=== PATIENT | male | born 2000 | race Caucasian/White ===

== ENCOUNTER 2020-08-15 10:49 | Inpatient (IN) | payer MEDICAID, OTHER ==
[~2020-08-15] VITALS: Ht 182.9 cm; Wt 69.5 kg
[2020-08-15] MEDS ORDERED: LORazepam 2 MG TABLET PO ONE (13:15)
[2020-08-15] MEDS ORDERED: MIRTAZAPINE 15 MG TABLET PO ONE (13:15)
[2020-08-15 13:34] LABS: BASOPHILS % (AUTO) 0.1 % (0.0-2.0); EOSINOPHILS % (AUTO) 1.8 % (1.0-6.0); HEMATOCRIT 37.4 % (41-53); HEMOGLOBIN 12.1 g/dL (13.5-17.5); LYMPHOCYTES # (AUTO) 1.1 K/uL (1.0-4.8); LYMPHOCYTES % (AUTO) 19.4 % (22.0-44.0); MEAN CORPUSCULAR HEMOGLOBIN 26.8 pg (26.0-34.0); MEAN CORPUSCULAR HGB CONC 32.5 G/dL (31.0-37.0); MEAN CORPUSCULAR VOLUME 83 fL (80-100); MONOCYTES # (AUTO) 0.7 K/uL (0.1-1.0); MONOCYTES % (AUTO) 12.9 % (2.0-9.0); NEUTROPHILS # (AUTO) 3.8 K/uL (1.8-7.7); NEUTROPHILS % (AUTO) 65.8 % (40.0-70.0); PLATELET COUNT (AUTO) 250 K/uL (150-450); RED BLOOD CELL COUNT(AUTO) 4.53 MIL/uL (4.50-5.90); RED CELL DISTRIBUTION WIDTH 14.2 % (11.5-14.5)
[2020-08-15 13:44] LABS: ANION GAP 3 mmol/L (8-16); CALCIUM, TOTAL 8.5 mg/dL (8.8-10.5); CARBON DIOXIDE 27 mmol/L (22-29); CHLORIDE 106 mmol/L (98-107); CREATININE 0.73 mg/dL (0.60-1.30); GLOMERULAR FILTR. RATE CALC > 60 mL/min (>60); GLUCOSE,RANDOM 93 mg/dL (70-110); POTASSIUM 4.1 mmol/L (3.5-5.1); SODIUM SERUM 136 mmol/L (136-145); UREA NITROGEN, BLOOD 15 mg/dL (7-18)
[2020-08-15 13:49] LABS: ALANINE AMINOTRANSFERASE 27 U/L (12-78); ALBUMIN 3.7 g/dL (3.4-5.0); ALKALINE PHOSPHATASE 53 U/L (46-116); ASPARTATE AMINOTRANSFERASE 14 U/L (15-37); BILIRUBIN,TOTAL 0.1 mg/dL (0.1-1.0); TOTAL PROTEIN, SERUM 7.2 g/dL (6.4-8.2)
[2020-08-15 14:00] LABS: AMPHET/METH SCREEN,URINE NEGATIVE (NEGATIVE); BARBITURATE SCREEN, URINE NEGATIVE (NEGATIVE); BENZODIAZEPINES SCREEN,URINE NEGATIVE (NEGATIVE); CANNABINOID SCREEN,URINE POSITIVE (NEGATIVE); COCAINE SCREEN,URINE NEGATIVE (NEGATIVE); METHADONE SCREEN, URINE NEGATIVE (NEGATIVE); OPIATE SCREEN,URINE NEGATIVE (NEGATIVE)
[2020-08-15 14:01] LABS: PHENCYCLIDINE SCREEN,URINE NEGATIVE (NEGATIVE)
[2020-08-15 14:04] LABS: LITHIUM < 0.20 mmol/L (0.60-1.20)
[2020-08-15 14:54] LABS: COVID AG,FIA SOURCE NASOPHARYNGEAL
[2020-08-15] MEDS ORDERED: MIRT-89 PO (15:01)
[2020-08-15] MEDS ORDERED: SPIR50 PO (15:01)
[2020-08-15] MEDS ORDERED: ESTR-14 PO (15:01)
[2020-08-15] MEDS ORDERED: QUEtiapine FUMARATE 100 MG TABLET PO PRN (17:30)
[2020-08-15] MEDS ORDERED: HydrOXYzine PAMOATE 50 MG CAPSULE PO PRN (17:30)
[2020-08-15] MEDS ORDERED: ACETAMINOPHEN 325 MG TABLET PO PRN (17:30)
[2020-08-15] MEDS ORDERED: MAG HYDROX/AL HYDROX/SIMETH ES 30 ML SUSPENSION UDCUP PO PRN (17:30)
[2020-08-15] MEDS ORDERED: GuaiFENesin/D-METHORPHAN [SUGAR-FREE] 200-20MG/10 ML SYRUP UDCUP PO PRN (17:30)
[2020-08-15] MEDS ORDERED: MAGNESIUM HYDROXIDE SUSPENSION 30 ML UDCUP PO PRN (17:30)
[2020-08-15] MEDS ORDERED: CYANOCOBALAMIN 1,000 MCG/ML VIAL IM ONE (17:30)
[2020-08-15] MEDS ORDERED: TUBERCULIN, PURIFIED PROTEIN DERIVATIVE 5 TU/0.1 ML SYRINGE ID ONE (17:30)
[2020-08-15] MEDS ORDERED: LOPERAMIDE HCL 2 MG CAPSULE PO PRN (17:30)
[2020-08-15 18:25] VITALS: BP 102/64
[2020-08-15] MEDS ORDERED: MIRTAZAPINE 15 MG TABLET PO SCH (21:00)
[2020-08-15] MEDS ORDERED: OLANZapine 5 MG RAPDIS TABLET PO SCH (21:00)
[2020-08-15] MEDS: LITHIUM CARBONATE 300 MG CAPSULE PO SCH (21:02)
[2020-08-15] MEDS: LORazepam 2 MG TABLET PO PRN (21:03)
[2020-08-15] MEDS: THIAMINE 100 MG TABLET PO SCH (21:03)
[2020-08-15 21:37] VITALS: BP 140/83
[2020-08-16 04:16] VITALS: BP 127/61
[2020-08-16] MEDS: MULTIVITAMINS WITH MINERALS, THERAPEUTIC TABLET PO SCH (09:10)
[2020-08-16] MEDS: FOLIC ACID 1 MG TABLET PO SCH (09:10)
[2020-08-16] MEDS: OMEGA-3/DHA/EPA/FISH OIL 1,000 MG CAPSULE PO SCH (09:10)
[2020-08-16] MEDS: NALTREXONE HCL 50 MG TABLET PO SCH (09:11)
[2020-08-16] MEDS: THIAMINE 100 MG TABLET PO SCH ×2 (09:11→16:36)
[2020-08-16] MEDS: FLUoxetine HCL 20 MG CAPSULE PO SCH (09:11)
[2020-08-16] MEDS: LORazepam 2 MG TABLET PO PRN ×2 (09:12→16:37)
[2020-08-16 09:49] VITALS: BP 107/60
[2020-08-16] MEDS: SPIRONOLACTONE 50 MG TABLET PO SCH (16:37)
[2020-08-16] MEDS: LITHIUM CARBONATE 300 MG CAPSULE PO SCH (20:50)
[2020-08-16] MEDS: OLANZapine 10 MG RAPDIS TABLET PO SCH (20:50)
[2020-08-17 03:29] VITALS: BP 120/61
[2020-08-17 08:39] VITALS: BP 117/77
[2020-08-17] MEDS: THIAMINE 100 MG TABLET PO SCH ×2 (09:26→16:14)
[2020-08-17] MEDS: OMEGA-3/DHA/EPA/FISH OIL 1,000 MG CAPSULE PO SCH (09:26)
[2020-08-17] MEDS: FOLIC ACID 1 MG TABLET PO SCH (09:26)
[2020-08-17] MEDS: MULTIVITAMINS WITH MINERALS, THERAPEUTIC TABLET PO SCH (09:26)
[2020-08-17] MEDS: FLUoxetine HCL 20 MG CAPSULE PO SCH (09:26)
[2020-08-17] MEDS: NALTREXONE HCL 50 MG TABLET PO SCH (09:26)
[2020-08-17] MEDS: SPIRONOLACTONE 50 MG TABLET PO SCH ×2 (09:26→16:14)
[2020-08-17 10:12] LABS: HEMOGLOBIN A1C 5.3 % (3.8-5.6)
[2020-08-17 10:29] LABS: CHOL/HDL RATIO 3.4 (4.2-7.3); FREE T4 (FREE THYROXINE) 0.93 ng/dL (0.76-1.46); THYROID STIMULATING HORMONE 0.07 uIU/mL (0.36-3.74)
[2020-08-17 16:07] VITALS: BP 126/65
[2020-08-17] MEDS: LITHIUM CARBONATE 300 MG CAPSULE PO SCH (20:25)
[2020-08-17] MEDS: OLANZapine 10 MG RAPDIS TABLET PO SCH (20:26)
[2020-08-18 01:48] VITALS: BP 123/62
[2020-08-18 08:05] VITALS: BP 105/60
[2020-08-18] MEDS: OMEGA-3/DHA/EPA/FISH OIL 1,000 MG CAPSULE PO SCH (08:42)
[2020-08-18] MEDS: NALTREXONE HCL 50 MG TABLET PO SCH (08:42)
[2020-08-18] MEDS: FLUoxetine HCL 20 MG CAPSULE PO SCH (08:42)
[2020-08-18] MEDS: FOLIC ACID 1 MG TABLET PO SCH (08:42)
[2020-08-18] MEDS: MULTIVITAMINS WITH MINERALS, THERAPEUTIC TABLET PO SCH (08:42)
[2020-08-18] MEDS: THIAMINE 100 MG TABLET PO SCH ×2 (08:42→17:44)
[2020-08-18] MEDS: SPIRONOLACTONE 50 MG TABLET PO SCH ×2 (08:42→16:22)
[2020-08-18 16:08] VITALS: BP 110/60
[2020-08-18] MEDS: LORazepam 2 MG TABLET PO PRN (16:26)
[2020-08-18] MEDS: OLANZapine 10 MG RAPDIS TABLET PO SCH (19:48)
[2020-08-18] MEDS: LITHIUM CARBONATE 300 MG CAPSULE PO SCH (19:48)
[2020-08-19 04:40] VITALS: BP 118/62
[2020-08-19 08:30] VITALS: BP 100/57
[2020-08-19 09:13] VITALS: BP 109/67
[2020-08-19] MEDS: NALTREXONE HCL 50 MG TABLET PO SCH (09:15)
[2020-08-19] MEDS: SPIRONOLACTONE 50 MG TABLET PO SCH ×2 (09:15→16:36)
[2020-08-19] MEDS: THIAMINE 100 MG TABLET PO SCH ×2 (09:16→16:36)
[2020-08-19] MEDS: FLUoxetine HCL 20 MG CAPSULE PO SCH (09:16)
[2020-08-19] MEDS: OMEGA-3/DHA/EPA/FISH OIL 1,000 MG CAPSULE PO SCH (09:16)
[2020-08-19] MEDS: FOLIC ACID 1 MG TABLET PO SCH (09:16)
[2020-08-19] MEDS: MULTIVITAMINS WITH MINERALS, THERAPEUTIC TABLET PO SCH (09:16)
[2020-08-19 16:06] VITALS: BP 124/65
[2020-08-19] MEDS: LITHIUM CARBONATE 300 MG CAPSULE PO SCH (20:11)
[2020-08-19] MEDS: OLANZapine 10 MG RAPDIS TABLET PO SCH (20:11)
[2020-08-20 08:12] VITALS: BP 103/60
[2020-08-20] MEDS: SPIRONOLACTONE 50 MG TABLET PO SCH ×2 (08:42→16:05)
[2020-08-20] MEDS: OMEGA-3/DHA/EPA/FISH OIL 1,000 MG CAPSULE PO SCH (08:42)
[2020-08-20] MEDS: FOLIC ACID 1 MG TABLET PO SCH (08:42)
[2020-08-20] MEDS: MULTIVITAMINS WITH MINERALS, THERAPEUTIC TABLET PO SCH (08:43)
[2020-08-20] MEDS: NALTREXONE HCL 50 MG TABLET PO SCH (08:43)
[2020-08-20] MEDS: FLUoxetine HCL 20 MG CAPSULE PO SCH (08:43)
[2020-08-20] MEDS: THIAMINE 100 MG TABLET PO SCH ×2 (08:43→16:05)
[2020-08-20 16:10] VITALS: BP 103/62
[2020-08-20] MEDS ORDERED: ESTR2TAB PO (17:48)
[2020-08-20] MEDS: OLANZapine 10 MG RAPDIS TABLET PO SCH (20:13)
[2020-08-20] MEDS: LITHIUM CARBONATE 300 MG CAPSULE PO SCH (20:13)
[2020-08-21 00:26] VITALS: BP 100/64
[2020-08-21 08:01] VITALS: BP 123/66
[2020-08-21] MEDS: MULTIVITAMINS WITH MINERALS, THERAPEUTIC TABLET PO SCH (08:26)
[2020-08-21] MEDS: FOLIC ACID 1 MG TABLET PO SCH (08:26)
[2020-08-21] MEDS: FLUoxetine HCL 20 MG CAPSULE PO SCH (08:26)
[2020-08-21] MEDS: THIAMINE 100 MG TABLET PO SCH ×2 (08:26→16:24)
[2020-08-21] MEDS: ESTRADIOL 2 MG PO SCH ×3 (08:27→16:23)
[2020-08-21] MEDS: OMEGA-3/DHA/EPA/FISH OIL 1,000 MG CAPSULE PO SCH (08:27)
[2020-08-21] MEDS: NALTREXONE HCL 50 MG TABLET PO SCH (08:38)
[2020-08-21] MEDS: SPIRONOLACTONE 50 MG TABLET PO SCH ×2 (09:05→16:24)
[2020-08-21 16:00] VITALS: BP 121/60
[2020-08-21] MEDS: LITHIUM CARBONATE 300 MG CAPSULE PO SCH (20:10)
[2020-08-21] MEDS: OLANZapine 10 MG RAPDIS TABLET PO SCH (20:10)
[2020-08-22 00:19] VITALS: BP 117/67
[2020-08-22 08:09] VITALS: BP 118/77
[2020-08-22] MEDS: OMEGA-3/DHA/EPA/FISH OIL 1,000 MG CAPSULE PO SCH (08:56)
[2020-08-22] MEDS: THIAMINE 100 MG TABLET PO SCH ×2 (08:56→16:09)
[2020-08-22] MEDS: FLUoxetine HCL 20 MG CAPSULE PO SCH (08:56)
[2020-08-22] MEDS: SPIRONOLACTONE 50 MG TABLET PO SCH ×2 (08:56→16:09)
[2020-08-22] MEDS: FOLIC ACID 1 MG TABLET PO SCH (08:56)
[2020-08-22] MEDS: MULTIVITAMINS WITH MINERALS, THERAPEUTIC TABLET PO SCH (08:56)
[2020-08-22] MEDS: NALTREXONE HCL 50 MG TABLET PO SCH (08:56)
[2020-08-22] MEDS: ESTRADIOL 2 MG PO SCH ×3 (08:57→16:09)
[2020-08-22 16:05] VITALS: BP 110/66
[2020-08-22 18:05] LABS: COVID AG,FIA SOURCE NASOPHARYNGEAL
[2020-08-22] MEDS: OLANZapine 10 MG RAPDIS TABLET PO SCH (20:59)
[2020-08-22] MEDS: LITHIUM CARBONATE 300 MG CAPSULE PO SCH (20:59)
[2020-08-23 00:27] VITALS: BP 109/65
[2020-08-23] MEDS ORDERED: LITH300C3 PO (08:02)
[2020-08-23] MEDS ORDERED: OLAN10TA22 PO (08:02)
[2020-08-23] MEDS ORDERED: OMEG-135 PO (08:02)
[2020-08-23] MEDS ORDERED: NALT50TA PO (08:02)
[2020-08-23] MEDS ORDERED: FLUO-191 PO (08:02)
[2020-08-23 08:05] VITALS: BP 141/80
[2020-08-23] MEDS: FLUoxetine HCL 20 MG CAPSULE PO SCH (08:19)
[2020-08-23] MEDS: SPIRONOLACTONE 50 MG TABLET PO SCH (08:19)
[2020-08-23] MEDS: ESTRADIOL 2 MG PO SCH (08:19)
[2020-08-23] MEDS: THIAMINE 100 MG TABLET PO SCH (08:19)
[2020-08-23] MEDS: OMEGA-3/DHA/EPA/FISH OIL 1,000 MG CAPSULE PO SCH (08:19)
[2020-08-23] MEDS: FOLIC ACID 1 MG TABLET PO SCH (08:19)
[2020-08-23] MEDS: MULTIVITAMINS WITH MINERALS, THERAPEUTIC TABLET PO SCH (08:19)
[2020-08-23] MEDS: NALTREXONE HCL 50 MG TABLET PO SCH (08:19)
[2020-08-23] MEDS ORDERED: ESTR-95 PO ×3 (08:21→08:35)
[2020-08-23] MEDS ORDERED: SPIR50 PO (08:25)
== END 2020-08-23 10:45 | disposition home or self-care (01) | DRG 753 ==
LOC: EMS 10:49 → EDSEX 10:49 → B2S 16:59 → B3A 20:48
PROVIDERS: ADMIT Psychiatry & Neurology Psychiatry; ATTEND Psychiatry & Neurology Psychiatry
DX: F31.9 Bipolar disorder, unspecified (principal); R45.851 Suicidal ideations; Z91.5 Personal history of self-harm; Z59.0 Homelessness; F64.9 Gender identity disorder, unspecified; D64.9 Anemia, unspecified; Z79.899 Other long term (current) drug therapy; I95.9 Hypotension, unspecified; Z20.822 Contact with and (suspected) exposure to COVID-19
CPT/HCPCS: 83036; 84439; 84443; 86592; 87426; G0480; J3420

== ENCOUNTER 2021-08-19 13:31 | Inpatient (IN) | payer MEDICAID, OTHER ==
[~2021-08-19] VITALS: Ht 182.9 cm; Wt 76.7 kg
[~2021-08-19 13:31] MED LIST: ESTR2TAB6 PO; FLUO-191 PO; LITH300C3 PO; NALT50TA PO; OLAN10TA22 PO; OMEG-135 PO; SPIR50TA27 PO
[2021-08-19 16:31] LABS: BASOPHILS % (AUTO) 0.3 % (0.0-2.0); EOSINOPHILS % (AUTO) 2.4 % (1.0-6.0); HEMATOCRIT 36.8 % (41-53); HEMOGLOBIN 12.4 g/dL (13.5-17.5); LYMPHOCYTES % (AUTO) 17.1 % (22.0-44.0); MEAN CORPUSCULAR HEMOGLOBIN 26.4 pg (26.0-34.0); MEAN CORPUSCULAR HGB CONC 33.6 G/dL (31.0-37.0); MEAN CORPUSCULAR VOLUME 79 fL (80-100); MONOCYTES # (AUTO) 0.8 K/uL (0.1-1.0); NEUTROPHILS # (AUTO) 3.6 K/uL (1.8-7.7); NEUTROPHILS % (AUTO) 65.2 % (40.0-70.0); PLATELET COUNT (AUTO) 247 K/uL (150-450); RED BLOOD CELL COUNT(AUTO) 4.69 MIL/uL (4.50-5.90); RED CELL DISTRIBUTION WIDTH 13.5 % (11.5-14.5)
[2021-08-19 16:49] LABS: ANION GAP 12 mmol/L (8-16); CALCIUM, TOTAL 8.9 mg/dL (8.8-10.5); CARBON DIOXIDE 26 mmol/L (22-29); CHLORIDE 104 mmol/L (98-107); CREATININE 0.81 mg/dL (0.60-1.30); GLOMERULAR FILTR. RATE CALC > 60 mL/min (>60); GLUCOSE,RANDOM 83 mg/dL (70-110); POTASSIUM 4.3 mmol/L (3.5-5.1); SODIUM SERUM 142 mmol/L (136-145); UREA NITROGEN, BLOOD 11 mg/dL (7-18)
[2021-08-19 16:56] LABS: ALANINE AMINOTRANSFERASE 19 U/L (12-78); ALKALINE PHOSPHATASE 58 U/L (46-116); ASPARTATE AMINOTRANSFERASE 15 U/L (15-37); BILIRUBIN,TOTAL 0.5 mg/dL (0.1-1.0); TOTAL PROTEIN, SERUM 7.3 g/dL (6.4-8.2)
[2021-08-19] MEDS ORDERED: ZOLPIDEM TARTRATE 10 MG TABLET PO PRN (17:45)
[2021-08-19] MEDS ORDERED: OLANZapine 5 MG RAPDIS TABLET PO PRN (17:45)
[2021-08-19] MEDS ORDERED: LORazepam 2 MG TABLET PO PRN (17:45)
[2021-08-19 19:16] LABS: COVID AG,FIA SOURCE NASAL SWAB
[2021-08-19 20:38] VITALS: BP 133/74
[2021-08-19] MEDS ORDERED: ACETAMINOPHEN 325 MG TABLET PO PRN (21:15)
[2021-08-19] MEDS ORDERED: TUBERCULIN, PURIFIED PROTEIN DERIVATIVE 5 TU/0.1 ML SYRINGE ID ONE (21:15)
[2021-08-19] MEDS ORDERED: LOPERAMIDE HCL 2 MG CAPSULE PO PRN (21:15)
[2021-08-19] MEDS ORDERED: MAG HYDROX/AL HYDROX/SIMETH ES 30 ML SUSPENSION UDCUP PO PRN (21:15)
[2021-08-19] MEDS ORDERED: GuaiFENesin/D-METHORPHAN [SUGAR-FREE] 200-20MG/10 ML SYRUP UDCUP PO PRN (21:15)
[2021-08-19] MEDS ORDERED: MAGNESIUM HYDROXIDE SUSPENSION 30 ML UDCUP PO PRN (21:15)
[2021-08-19] MEDS ORDERED: PROMETHAZINE HCL 25 MG TABLET PO PRN (21:15)
[2021-08-19] MEDS ORDERED: HydrOXYzine PAMOATE 50 MG CAPSULE PO PRN (21:15)
[2021-08-20 09:23] LABS: CHOL/HDL RATIO 3.3 (4.2-7.3); FREE T4 (FREE THYROXINE) 1.25 ng/dL (0.76-1.46); THYROID STIMULATING HORMONE 0.12 uIU/mL (0.36-3.74)
[2021-08-20 09:32] LABS: HEMOGLOBIN A1C 5.6 % (3.8-5.6)
[2021-08-20] MEDS: FOLIC ACID 1 MG TABLET PO SCH (09:44)
[2021-08-20] MEDS: MULTIVITAMINS WITH MINERALS, THERAPEUTIC TABLET PO SCH (09:44)
[2021-08-20] MEDS: THIAMINE 100 MG TABLET PO SCH ×2 (09:44→16:14)
[2021-08-20] MEDS: NALTREXONE HCL 50 MG TABLET PO SCH (09:44)
[2021-08-20] MEDS: OMEGA-3/DHA/EPA/FISH OIL 1,000 MG CAPSULE PO SCH (09:44)
[2021-08-20 10:31] VITALS: BP 108/63
[2021-08-20 13:12] LABS: APPEARANCE,URINE CLOUDY (CLEAR); GLUCOSE, URINE (UA) NEGATIVE (NEGATIVE); KETONES,URINE 15 mg/dL (NEGATIVE); LEUKOCYTE ESTERASE ,URINE NEGATIVE (NEGATIVE); NITRATE,URINE NEGATIVE (NEGATIVE); OCCULT BLOOD,URINE NEGATIVE (NEGATIVE); PH,URINE 6.5 (5.0-8.0); PROTEIN,URINE POS 1+ (NEGATIVE)
[2021-08-20 13:17] LABS: AMPHET/METH SCREEN,URINE POSITIVE (NEGATIVE); BARBITURATE SCREEN, URINE NEGATIVE (NEGATIVE); BENZODIAZEPINES SCREEN,URINE NEGATIVE (NEGATIVE); BILIRUBIN,URINE PRELIM. POSITIVE (NEGATIVE); CANNABINOID SCREEN,URINE POSITIVE (NEGATIVE); COCAINE SCREEN,URINE POSITIVE (NEGATIVE); METHADONE SCREEN, URINE NEGATIVE (NEGATIVE); OPIATE SCREEN,URINE NEGATIVE (NEGATIVE)
[2021-08-20 13:18] LABS: PHENCYCLIDINE SCREEN,URINE NEGATIVE (NEGATIVE)
[2021-08-20 16:16] VITALS: BP 129/75
[2021-08-20] MEDS: LITHIUM CARBONATE 300 MG CAPSULE PO SCH (20:08)
[2021-08-20] MEDS: MELATONIN 5 MG TABLET PO SCH (20:09)
[2021-08-20] MEDS: OLANZapine 5 MG RAPDIS TABLET PO SCH (20:09)
[2021-08-20] MEDS: PRAZOSIN HCL 1 MG CAPSULE PO SCH (20:42)
[2021-08-20] MEDS ORDERED: MIRTAZAPINE 15 MG TABLET PO SCH (21:00)
[2021-08-21] MEDS: NALTREXONE HCL 50 MG TABLET PO SCH (09:33)
[2021-08-21] MEDS: MULTIVITAMINS WITH MINERALS, THERAPEUTIC TABLET PO SCH (09:33)
[2021-08-21] MEDS: THIAMINE 100 MG TABLET PO SCH ×2 (09:33→16:07)
[2021-08-21] MEDS: FOLIC ACID 1 MG TABLET PO SCH (09:33)
[2021-08-21] MEDS: OMEGA-3/DHA/EPA/FISH OIL 1,000 MG CAPSULE PO SCH (09:33)
[2021-08-21 09:39] VITALS: BP 96/65
[2021-08-21 13:36] VITALS: BP 96/65
[2021-08-21 16:18] VITALS: BP 101/70
[2021-08-21] MEDS: LITHIUM CARBONATE 300 MG CAPSULE PO SCH (20:05)
[2021-08-21] MEDS: MIRTAZAPINE 30 MG TABLET PO SCH (20:05)
[2021-08-21] MEDS: MELATONIN 5 MG TABLET PO SCH (20:05)
[2021-08-21] MEDS: OLANZapine 5 MG RAPDIS TABLET PO SCH (20:07)
[2021-08-21] MEDS: PRAZOSIN HCL 1 MG CAPSULE PO SCH (20:07)
[2021-08-22 07:06] LABS: HIV 1-2 SCREEN 4TH GEN W/RFLX Non Reactive (Non Reactive)
[2021-08-22 08:00] VITALS: BP 101/59
[2021-08-22] MEDS: FOLIC ACID 1 MG TABLET PO SCH (08:32)
[2021-08-22] MEDS: NALTREXONE HCL 50 MG TABLET PO SCH (08:32)
[2021-08-22] MEDS: MULTIVITAMINS WITH MINERALS, THERAPEUTIC TABLET PO SCH (08:32)
[2021-08-22] MEDS: OMEGA-3/DHA/EPA/FISH OIL 1,000 MG CAPSULE PO SCH (08:32)
[2021-08-22] MEDS: THIAMINE 100 MG TABLET PO SCH ×2 (08:32→17:51)
[2021-08-22 18:00] VITALS: BP 119/73
[2021-08-22] MEDS: LITHIUM CARBONATE 300 MG CAPSULE PO SCH (20:48)
[2021-08-22] MEDS: MIRTAZAPINE 30 MG TABLET PO SCH (20:48)
[2021-08-22] MEDS: PRAZOSIN HCL 1 MG CAPSULE PO SCH (20:48)
[2021-08-22] MEDS: MELATONIN 5 MG TABLET PO SCH (20:48)
[2021-08-22] MEDS: OLANZapine 10 MG RAPDIS TABLET PO SCH (20:49)
[2021-08-23] MEDS: FOLIC ACID 1 MG TABLET PO SCH (08:46)
[2021-08-23] MEDS: NALTREXONE HCL 50 MG TABLET PO SCH (08:46)
[2021-08-23] MEDS: OMEGA-3/DHA/EPA/FISH OIL 1,000 MG CAPSULE PO SCH (08:46)
[2021-08-23] MEDS: MULTIVITAMINS WITH MINERALS, THERAPEUTIC TABLET PO SCH (08:46)
[2021-08-23] MEDS: THIAMINE 100 MG TABLET PO SCH ×2 (08:46→16:37)
[2021-08-23 10:24] VITALS: BP 90/51
[2021-08-23] MEDS: LITHIUM CARBONATE 300 MG CAPSULE PO SCH (17:05)
[2021-08-23 17:10] VITALS: BP 118/67
[2021-08-23] MEDS: OLANZapine 10 MG RAPDIS TABLET PO SCH (20:15)
[2021-08-23] MEDS: MIRTAZAPINE 30 MG TABLET PO SCH (20:15)
[2021-08-23] MEDS: MELATONIN 5 MG TABLET PO SCH (20:15)
[2021-08-23] MEDS: PRAZOSIN HCL 1 MG CAPSULE PO SCH (20:15)
[2021-08-24] MEDS: LITHIUM CARBONATE 300 MG CAPSULE PO SCH ×3 (07:07→16:32)
[2021-08-24] MEDS: THIAMINE 100 MG TABLET PO SCH ×2 (09:07→16:32)
[2021-08-24] MEDS: NALTREXONE HCL 50 MG TABLET PO SCH (09:07)
[2021-08-24] MEDS: MULTIVITAMINS WITH MINERALS, THERAPEUTIC TABLET PO SCH (09:07)
[2021-08-24] MEDS: OMEGA-3/DHA/EPA/FISH OIL 1,000 MG CAPSULE PO SCH (09:07)
[2021-08-24] MEDS: FOLIC ACID 1 MG TABLET PO SCH (09:07)
[2021-08-24 10:39] VITALS: BP 90/51
[2021-08-24 16:31] VITALS: BP 124/78
[2021-08-24] MEDS: MIRTAZAPINE 30 MG TABLET PO SCH (20:57)
[2021-08-24] MEDS: OLANZapine 10 MG RAPDIS TABLET PO SCH (20:57)
[2021-08-24] MEDS: MELATONIN 5 MG TABLET PO SCH (20:57)
[2021-08-24] MEDS: PRAZOSIN HCL 1 MG CAPSULE PO SCH (20:57)
[2021-08-25] MEDS: LITHIUM CARBONATE 300 MG CAPSULE PO SCH ×3 (06:51→16:12)
[2021-08-25] MEDS: OMEGA-3/DHA/EPA/FISH OIL 1,000 MG CAPSULE PO SCH (08:08)
[2021-08-25] MEDS: NALTREXONE HCL 50 MG TABLET PO SCH (08:08)
[2021-08-25] MEDS: THIAMINE 100 MG TABLET PO SCH ×2 (08:08→16:12)
[2021-08-25] MEDS: FOLIC ACID 1 MG TABLET PO SCH (08:08)
[2021-08-25] MEDS: MULTIVITAMINS WITH MINERALS, THERAPEUTIC TABLET PO SCH (08:09)
[2021-08-25 08:30] VITALS: BP 85/67
[2021-08-25 15:12] LABS: COVID AG,FIA SOURCE NASOPHARYNGEAL
[2021-08-25 16:00] VITALS: BP 135/65
[2021-08-25] MEDS: MIRTAZAPINE 30 MG TABLET PO SCH (20:10)
[2021-08-25] MEDS: OLANZapine 10 MG RAPDIS TABLET PO SCH (20:10)
[2021-08-25] MEDS: PRAZOSIN HCL 1 MG CAPSULE PO SCH (20:10)
[2021-08-25] MEDS: MELATONIN 5 MG TABLET PO SCH (20:10)
[2021-08-26] MEDS: LITHIUM CARBONATE 300 MG CAPSULE PO SCH ×3 (06:56→16:34)
[2021-08-26] MEDS: MULTIVITAMINS WITH MINERALS, THERAPEUTIC TABLET PO SCH (08:45)
[2021-08-26] MEDS: NALTREXONE HCL 50 MG TABLET PO SCH (08:46)
[2021-08-26] MEDS: OMEGA-3/DHA/EPA/FISH OIL 1,000 MG CAPSULE PO SCH (08:46)
[2021-08-26] MEDS: FOLIC ACID 1 MG TABLET PO SCH (08:46)
[2021-08-26] MEDS: THIAMINE 100 MG TABLET PO SCH ×2 (08:46→16:34)
[2021-08-26 10:38] VITALS: BP 110/65
[2021-08-26 17:18] VITALS: BP 129/62
[2021-08-26] MEDS: PRAZOSIN HCL 1 MG CAPSULE PO SCH (21:03)
[2021-08-26] MEDS: OLANZapine 10 MG RAPDIS TABLET PO SCH (21:04)
[2021-08-26] MEDS: MIRTAZAPINE 30 MG TABLET PO SCH (21:04)
[2021-08-26] MEDS: MELATONIN 5 MG TABLET PO SCH (21:04)
[2021-08-27] MEDS: LITHIUM CARBONATE 300 MG CAPSULE PO SCH ×3 (06:50→17:34)
[2021-08-27 08:25] VITALS: BP 147/88
[2021-08-27] MEDS: OMEGA-3/DHA/EPA/FISH OIL 1,000 MG CAPSULE PO SCH (09:04)
[2021-08-27] MEDS: THIAMINE 100 MG TABLET PO SCH ×2 (09:04→17:34)
[2021-08-27] MEDS: FOLIC ACID 1 MG TABLET PO SCH (09:04)
[2021-08-27] MEDS: MULTIVITAMINS WITH MINERALS, THERAPEUTIC TABLET PO SCH (09:04)
[2021-08-27] MEDS: NALTREXONE HCL 50 MG TABLET PO SCH (09:05)
[2021-08-27 17:12] VITALS: BP 114/67
[2021-08-27] MEDS ORDERED: LITHIUM CARBONATE 300 MG TABLET PO SCH (21:00)
[2021-08-27] MEDS: MELATONIN 5 MG TABLET PO SCH (21:26)
[2021-08-27] MEDS: OLANZapine 10 MG RAPDIS TABLET PO SCH (21:26)
[2021-08-27] MEDS: PRAZOSIN HCL 1 MG CAPSULE PO SCH (21:26)
[2021-08-27] MEDS: MIRTAZAPINE 30 MG TABLET PO SCH (21:26)
[2021-08-28] MEDS ORDERED: LITHIUM CARBONATE 300 MG CAPSULE PO SCH (07:30)
[2021-08-28 08:30] VITALS: BP 114/62
[2021-08-28] MEDS: THIAMINE 100 MG TABLET PO SCH ×2 (08:35→17:00)
[2021-08-28] MEDS: FOLIC ACID 1 MG TABLET PO SCH (08:35)
[2021-08-28] MEDS: OMEGA-3/DHA/EPA/FISH OIL 1,000 MG CAPSULE PO SCH (08:35)
[2021-08-28] MEDS: NALTREXONE HCL 50 MG TABLET PO SCH (08:36)
[2021-08-28] MEDS: MULTIVITAMINS WITH MINERALS, THERAPEUTIC TABLET PO SCH (08:36)
[2021-08-28 16:15] VITALS: BP 110/68
[2021-08-28] MEDS: ESTRADIOL 1 MG TABLET PO SCH ×2 (17:00→21:08)
[2021-08-28] MEDS: MIRTAZAPINE 30 MG TABLET PO SCH (21:07)
[2021-08-28] MEDS: OLANZapine 10 MG RAPDIS TABLET PO SCH (21:07)
[2021-08-28] MEDS: PRAZOSIN HCL 1 MG CAPSULE PO SCH (21:08)
[2021-08-28] MEDS: MedroxyPROGESTERone ACET 5 MG TABLET PO SCH (21:08)
[2021-08-28] MEDS: MELATONIN 5 MG TABLET PO SCH (21:08)
[2021-08-29] MEDS: ESTRADIOL 1 MG TABLET PO SCH ×2 (08:57→20:29)
[2021-08-29] MEDS: FOLIC ACID 1 MG TABLET PO SCH (08:58)
[2021-08-29] MEDS: NALTREXONE HCL 50 MG TABLET PO SCH (08:58)
[2021-08-29] MEDS: MULTIVITAMINS WITH MINERALS, THERAPEUTIC TABLET PO SCH (08:58)
[2021-08-29] MEDS: OMEGA-3/DHA/EPA/FISH OIL 1,000 MG CAPSULE PO SCH (08:58)
[2021-08-29] MEDS: THIAMINE 100 MG TABLET PO SCH ×2 (08:58→16:09)
[2021-08-29 10:10] VITALS: BP 96/55
[2021-08-29 13:27] VITALS: BP 55/83
[2021-08-29 16:49] VITALS: BP 122/69
[2021-08-29] MEDS: OLANZapine 10 MG RAPDIS TABLET PO SCH (20:28)
[2021-08-29] MEDS: PRAZOSIN HCL 1 MG CAPSULE PO SCH (20:28)
[2021-08-29] MEDS: MELATONIN 5 MG TABLET PO SCH (20:29)
[2021-08-29] MEDS: MedroxyPROGESTERone ACET 5 MG TABLET PO SCH (20:29)
[2021-08-29] MEDS: MIRTAZAPINE 30 MG TABLET PO SCH (20:30)
[2021-08-30] MEDS: OMEGA-3/DHA/EPA/FISH OIL 1,000 MG CAPSULE PO SCH (08:40)
[2021-08-30] MEDS: MULTIVITAMINS WITH MINERALS, THERAPEUTIC TABLET PO SCH (08:40)
[2021-08-30] MEDS: NALTREXONE HCL 50 MG TABLET PO SCH (08:40)
[2021-08-30] MEDS: ESTRADIOL 1 MG TABLET PO SCH ×2 (08:41→20:21)
[2021-08-30 08:57] VITALS: BP 121/69
[2021-08-30 09:03] VITALS: BP 121/69
[2021-08-30 16:18] VITALS: BP 136/69
[2021-08-30] MEDS: MELATONIN 5 MG TABLET PO SCH (20:19)
[2021-08-30] MEDS: MIRTAZAPINE 30 MG TABLET PO SCH (20:19)
[2021-08-30] MEDS: MedroxyPROGESTERone ACET 5 MG TABLET PO SCH (20:20)
[2021-08-30] MEDS: PRAZOSIN HCL 1 MG CAPSULE PO SCH (20:20)
[2021-08-30] MEDS: OLANZapine 10 MG RAPDIS TABLET PO SCH (20:20)
[2021-08-31] MEDS: ESTRADIOL 1 MG TABLET PO SCH ×2 (08:29→20:29)
[2021-08-31] MEDS: OMEGA-3/DHA/EPA/FISH OIL 1,000 MG CAPSULE PO SCH (08:30)
[2021-08-31] MEDS: MULTIVITAMINS WITH MINERALS, THERAPEUTIC TABLET PO SCH (08:30)
[2021-08-31] MEDS: NALTREXONE HCL 50 MG TABLET PO SCH (08:30)
[2021-08-31 08:52] VITALS: BP 116/65
[2021-08-31 16:00] VITALS: BP 122/62
[2021-08-31] MEDS: PRAZOSIN HCL 1 MG CAPSULE PO SCH (20:29)
[2021-08-31] MEDS: MIRTAZAPINE 30 MG TABLET PO SCH (20:29)
[2021-08-31] MEDS: OLANZapine 10 MG RAPDIS TABLET PO SCH (20:29)
[2021-08-31] MEDS: MedroxyPROGESTERone ACET 5 MG TABLET PO SCH (20:29)
[2021-08-31] MEDS: MELATONIN 5 MG TABLET PO SCH (21:04)
[2021-09-01] MEDS: ESTRADIOL 1 MG TABLET PO SCH ×2 (08:18→21:03)
[2021-09-01] MEDS: OMEGA-3/DHA/EPA/FISH OIL 1,000 MG CAPSULE PO SCH (08:18)
[2021-09-01] MEDS: NALTREXONE HCL 50 MG TABLET PO SCH (08:18)
[2021-09-01] MEDS: MULTIVITAMINS WITH MINERALS, THERAPEUTIC TABLET PO SCH (08:18)
[2021-09-01 09:30] VITALS: BP 105/57
[2021-09-01 11:20] LABS: COVID AG,FIA SOURCE NASAL SWAB
[2021-09-01 16:54] VITALS: BP 133/75
[2021-09-01] MEDS: OLANZapine 10 MG RAPDIS TABLET PO SCH (21:02)
[2021-09-01] MEDS: MELATONIN 5 MG TABLET PO SCH (21:02)
[2021-09-01] MEDS: MedroxyPROGESTERone ACET 5 MG TABLET PO SCH (21:02)
[2021-09-01] MEDS: MIRTAZAPINE 30 MG TABLET PO SCH (21:02)
[2021-09-01] MEDS: PRAZOSIN HCL 1 MG CAPSULE PO SCH (21:03)
[2021-09-02] MEDS: OMEGA-3/DHA/EPA/FISH OIL 1,000 MG CAPSULE PO SCH (09:21)
[2021-09-02] MEDS: ESTRADIOL 1 MG TABLET PO SCH ×2 (09:21→20:27)
[2021-09-02] MEDS: MULTIVITAMINS WITH MINERALS, THERAPEUTIC TABLET PO SCH (09:21)
[2021-09-02] MEDS: NALTREXONE HCL 50 MG TABLET PO SCH (09:21)
[2021-09-02 09:47] VITALS: BP 137/51
[2021-09-02 16:13] VITALS: BP 120/77
[2021-09-02] MEDS: MedroxyPROGESTERone ACET 5 MG TABLET PO SCH (20:27)
[2021-09-02] MEDS: OLANZapine 10 MG RAPDIS TABLET PO SCH (20:27)
[2021-09-02] MEDS: MIRTAZAPINE 30 MG TABLET PO SCH (20:28)
[2021-09-02] MEDS: MELATONIN 5 MG TABLET PO SCH (20:28)
[2021-09-02] MEDS: PRAZOSIN HCL 1 MG CAPSULE PO SCH (20:28)
[2021-09-03] MEDS: OMEGA-3/DHA/EPA/FISH OIL 1,000 MG CAPSULE PO SCH (09:13)
[2021-09-03] MEDS: NALTREXONE HCL 50 MG TABLET PO SCH (09:13)
[2021-09-03] MEDS: MULTIVITAMINS WITH MINERALS, THERAPEUTIC TABLET PO SCH (09:13)
[2021-09-03] MEDS: ESTRADIOL 1 MG TABLET PO SCH ×2 (09:13→20:15)
[2021-09-03 09:25] VITALS: BP 108/58
[2021-09-03 16:29] VITALS: BP 104/78
[2021-09-03] MEDS: MIRTAZAPINE 30 MG TABLET PO SCH (20:14)
[2021-09-03] MEDS: MedroxyPROGESTERone ACET 5 MG TABLET PO SCH (20:14)
[2021-09-03] MEDS: OLANZapine 10 MG RAPDIS TABLET PO SCH (20:15)
[2021-09-03] MEDS: PRAZOSIN HCL 1 MG CAPSULE PO SCH (20:15)
[2021-09-03] MEDS: MELATONIN 5 MG TABLET PO SCH (20:15)
[2021-09-04] MEDS: OMEGA-3/DHA/EPA/FISH OIL 1,000 MG CAPSULE PO SCH (09:01)
[2021-09-04] MEDS: MULTIVITAMINS WITH MINERALS, THERAPEUTIC TABLET PO SCH (09:02)
[2021-09-04] MEDS: ESTRADIOL 1 MG TABLET PO SCH (09:02)
[2021-09-04] MEDS: NALTREXONE HCL 50 MG TABLET PO SCH (09:02)
[2021-09-04 13:37] VITALS: BP 103/53
[2021-09-04] MEDS ORDERED: PRAZ1 PO (15:25)
[2021-09-04] MEDS ORDERED: OMEG-135 PO (15:25)
[2021-09-04] MEDS ORDERED: MIRT30 PO (15:25)
[2021-09-04] MEDS ORDERED: MELA5TAB40 PO (15:25)
[2021-09-04] MEDS ORDERED: OLAN10TA26 PO (15:25)
[2021-09-04] MEDS ORDERED: NALT50TA PO (15:25)
[2021-09-04] MEDS ORDERED: ESTR-95 PO ×2 (16:33)
[2021-09-04] MEDS ORDERED: PROV5 PO (16:34)
[2021-09-04 17:03] VITALS: BP 128/68
[2021-09-05] MEDS ORDERED: LITH300C3 PO (12:27)
[2021-09-05] MEDS ORDERED: FLUO20CA36 PO (12:27)
== END 2021-09-04 17:01 | disposition home or self-care (01) | DRG 750 ==
LOC: EMS 13:31 → 3EI 17:33
PROVIDERS: ADMIT Psychiatry & Neurology Psychiatry; ATTEND Psychiatry & Neurology Psychiatry
DX: F25.1 Schizoaffective disorder, depressive type (principal); R45.851 Suicidal ideations; Z59.00 Homelessness unspecified; D64.9 Anemia, unspecified; F19.20 Other psychoactive substance dependence, uncomplicated; F31.9 Bipolar disorder, unspecified; Z20.822 Contact with and (suspected) exposure to COVID-19; F41.9 Anxiety disorder, unspecified; F17.210 Nicotine dependence, cigarettes, uncomplicated; Z91.19 Patient's noncompliance with other medical treatment and regimen; Z55.9 Problems related to education and literacy, unspecified; Z63.9 Problem related to primary support group, unspecified; Z65.3 Problems related to other legal circumstances; Z79.899 Other long term (current) drug therapy; Z91.51 Personal history of suicidal behavior
CPT/HCPCS: 80053; 80061; 80178; 83036; 84439; 84443; 85025; 86592; 87389; 87491; 87591; 99285; G0480; Q9967

== ENCOUNTER 2021-09-06 18:46 | Inpatient (IN) | payer MEDICAID, OTHER ==
[~2021-09-06] VITALS: Ht 175.3 cm; Wt 75.7 kg
[~2021-09-06 18:46] MED LIST changes: +ESTR-95 PO; -ESTR2TAB6 PO; -FLUO-191 PO; +FLUO20CA36 PO; +MELA5TAB40 PO; +MIRT30 PO; -OLAN10TA22 PO; +OLAN10TA26 PO; +PRAZ1 PO; +PROV5 PO; -SPIR50TA27 PO
[2021-09-06] MEDS ORDERED: OLANZapine 5 MG RAPDIS TABLET PO PRN (20:15)
[2021-09-06] MEDS ORDERED: LORazepam 2 MG TABLET PO PRN (20:15)
[2021-09-06] MEDS ORDERED: ZOLPIDEM TARTRATE 10 MG TABLET PO PRN (20:15)
[2021-09-06 21:43] LABS: COVID AG,FIA SOURCE NASOPHARYNGEAL
[2021-09-06 21:44] LABS: BASOPHILS % (AUTO) 0.2 % (0.0-2.0); EOSINOPHILS % (AUTO) 2.9 % (1.0-6.0); HEMATOCRIT 34.5 % (41-53); HEMOGLOBIN 11.3 g/dL (13.5-17.5); LYMPHOCYTES # (AUTO) 1.1 K/uL (1.0-4.8); LYMPHOCYTES % (AUTO) 14.4 % (22.0-44.0); MEAN CORPUSCULAR HGB CONC 32.7 G/dL (31.0-37.0); MEAN CORPUSCULAR VOLUME 80 fL (80-100); MONOCYTES # (AUTO) 0.9 K/uL (0.1-1.0); MONOCYTES % (AUTO) 10.9 % (2.0-9.0); NEUTROPHILS # (AUTO) 5.6 K/uL (1.8-7.7); NEUTROPHILS % (AUTO) 71.6 % (40.0-70.0); PLATELET COUNT (AUTO) 233 K/uL (150-450); RED BLOOD CELL COUNT(AUTO) 4.35 MIL/uL (4.50-5.90)
[2021-09-06 22:15] LABS: ANION GAP 4 mmol/L (8-16); CALCIUM, TOTAL 8.6 mg/dL (8.8-10.5); CARBON DIOXIDE 29 mmol/L (22-29); CHLORIDE 109 mmol/L (98-107); CREATININE 0.72 mg/dL (0.60-1.30); GLOMERULAR FILTR. RATE CALC > 60 mL/min (>60); GLUCOSE,RANDOM 100 mg/dL (70-110); POTASSIUM 3.7 mmol/L (3.5-5.1); SODIUM SERUM 142 mmol/L (136-145); UREA NITROGEN, BLOOD 17 mg/dL (7-18)
[2021-09-06 22:21] LABS: ALANINE AMINOTRANSFERASE 34 U/L (12-78); ALBUMIN 3.8 g/dL (3.4-5.0); ALKALINE PHOSPHATASE 48 U/L (46-116); ASPARTATE AMINOTRANSFERASE 26 U/L (15-37); BILIRUBIN,TOTAL 0.6 mg/dL (0.1-1.0); TOTAL PROTEIN, SERUM 7.1 g/dL (6.4-8.2)
[2021-09-06 23:58] LABS: APPEARANCE,URINE CLEAR (CLEAR); BILIRUBIN,URINE NEGATIVE (NEGATIVE); GLUCOSE, URINE (UA) NEGATIVE (NEGATIVE); KETONES,URINE TRACE mg/dL (NEGATIVE); LEUKOCYTE ESTERASE ,URINE NEGATIVE (NEGATIVE); NITRATE,URINE NEGATIVE (NEGATIVE); OCCULT BLOOD,URINE NEGATIVE (NEGATIVE); PH,URINE 5.5 (5.0-8.0); PROTEIN,URINE NEGATIVE (NEGATIVE); UROBILINOGEN,URINE 0.2 mg/dL (<=1.0)
[2021-09-07 00:07] LABS: AMPHET/METH SCREEN,URINE POSITIVE (NEGATIVE); BARBITURATE SCREEN, URINE NEGATIVE (NEGATIVE); BENZODIAZEPINES SCREEN,URINE NEGATIVE (NEGATIVE); CANNABINOID SCREEN,URINE POSITIVE (NEGATIVE); COCAINE SCREEN,URINE NEGATIVE (NEGATIVE); METHADONE SCREEN, URINE NEGATIVE (NEGATIVE); OPIATE SCREEN,URINE POSITIVE (NEGATIVE)
[2021-09-07 00:10] LABS: PHENCYCLIDINE SCREEN,URINE NEGATIVE (NEGATIVE)
[2021-09-07 00:15] VITALS: BP 118/65
[2021-09-07 08:35] LABS: CHOL/HDL RATIO 2.3 (4.2-7.3)
[2021-09-07 12:53] VITALS: BP 109/64
[2021-09-07] MEDS: TERBINAFINE HCL 1% 30 GM CREAM TP SCH (16:33)
[2021-09-07 16:54] VITALS: BP 118/72
[2021-09-07] MEDS: MedroxyPROGESTERone ACET 5 MG TABLET PO SCH (20:03)
[2021-09-07] MEDS: PRAZOSIN HCL 1 MG CAPSULE PO SCH (20:03)
[2021-09-07] MEDS: MELATONIN 5 MG TABLET PO SCH (20:03)
[2021-09-07] MEDS: ESTRADIOL 1 MG TABLET PO SCH (20:03)
[2021-09-07] MEDS: OLANZapine 10 MG TABLET PO SCH (20:03)
[2021-09-07] MEDS: LITHIUM CARBONATE 300 MG CAPSULE PO SCH (20:04)
[2021-09-08] MEDS: FOLIC ACID 1 MG TABLET PO SCH (08:27)
[2021-09-08] MEDS: NALTREXONE HCL 50 MG TABLET PO SCH (08:27)
[2021-09-08] MEDS: MULTIVITAMINS WITH MINERALS, THERAPEUTIC TABLET PO SCH (08:27)
[2021-09-08] MEDS: THIAMINE 100 MG TABLET PO SCH (08:27)
[2021-09-08] MEDS: OMEGA-3/DHA/EPA/FISH OIL 1,000 MG CAPSULE PO SCH (08:27)
[2021-09-08] MEDS: FLUoxetine HCL 20 MG CAPSULE PO SCH (08:27)
[2021-09-08] MEDS: ESTRADIOL 1 MG TABLET PO SCH ×3 (08:28→20:59)
[2021-09-08 08:30] VITALS: BP 102/67
[2021-09-08] MEDS: TERBINAFINE HCL 1% 30 GM CREAM TP SCH ×2 (10:21→17:55)
[2021-09-08 12:07] VITALS: BP 102/57
[2021-09-08 17:02] VITALS: BP 120/61
[2021-09-08] MEDS: MELATONIN 5 MG TABLET PO SCH ×2 (20:05→21:00)
[2021-09-08] MEDS: MedroxyPROGESTERone ACET 5 MG TABLET PO SCH ×2 (20:06→21:00)
[2021-09-08] MEDS: LITHIUM CARBONATE 300 MG CAPSULE PO SCH ×2 (20:06→20:57)
[2021-09-08] MEDS: PRAZOSIN HCL 1 MG CAPSULE PO SCH ×2 (20:07→21:00)
[2021-09-08] MEDS: OLANZapine 10 MG TABLET PO SCH ×2 (20:08→21:00)
[2021-09-09 08:02] VITALS: BP 124/73
[2021-09-09] MEDS: MULTIVITAMINS WITH MINERALS, THERAPEUTIC TABLET PO SCH (08:27)
[2021-09-09] MEDS: OMEGA-3/DHA/EPA/FISH OIL 1,000 MG CAPSULE PO SCH (08:27)
[2021-09-09] MEDS: NALTREXONE HCL 50 MG TABLET PO SCH (08:28)
[2021-09-09] MEDS: TERBINAFINE HCL 1% 30 GM CREAM TP SCH ×2 (08:28→16:47)
[2021-09-09] MEDS: FOLIC ACID 1 MG TABLET PO SCH (08:28)
[2021-09-09] MEDS: FLUoxetine HCL 20 MG CAPSULE PO SCH (08:28)
[2021-09-09] MEDS: THIAMINE 100 MG TABLET PO SCH (08:28)
[2021-09-09] MEDS: ESTRADIOL 1 MG TABLET PO SCH ×2 (08:28→20:26)
[2021-09-09 16:18] VITALS: BP 135/85
[2021-09-09] MEDS: PRAZOSIN HCL 1 MG CAPSULE PO SCH (20:26)
[2021-09-09] MEDS: OLANZapine 10 MG TABLET PO SCH (20:26)
[2021-09-09] MEDS: MELATONIN 5 MG TABLET PO SCH (20:26)
[2021-09-09] MEDS: MedroxyPROGESTERone ACET 5 MG TABLET PO SCH (20:26)
[2021-09-09] MEDS ORDERED: MIRTAZAPINE 15 MG TABLET PO SCH (21:00)
[2021-09-10] MEDS: FOLIC ACID 1 MG TABLET PO SCH (08:24)
[2021-09-10] MEDS: NALTREXONE HCL 50 MG TABLET PO SCH (08:24)
[2021-09-10] MEDS: FLUoxetine HCL 20 MG CAPSULE PO SCH (08:24)
[2021-09-10] MEDS: OMEGA-3/DHA/EPA/FISH OIL 1,000 MG CAPSULE PO SCH (08:24)
[2021-09-10] MEDS: MULTIVITAMINS WITH MINERALS, THERAPEUTIC TABLET PO SCH (08:24)
[2021-09-10] MEDS: THIAMINE 100 MG TABLET PO SCH (08:24)
[2021-09-10] MEDS: TERBINAFINE HCL 1% 30 GM CREAM TP SCH ×2 (08:25→17:06)
[2021-09-10] MEDS: ESTRADIOL 1 MG TABLET PO SCH ×2 (08:25→20:44)
[2021-09-10 09:17] VITALS: BP 95/52
[2021-09-10 16:14] VITALS: BP 106/59
[2021-09-10] MEDS: OLANZapine 10 MG TABLET PO SCH (20:44)
[2021-09-10] MEDS: MedroxyPROGESTERone ACET 5 MG TABLET PO SCH (20:45)
[2021-09-10] MEDS: MELATONIN 5 MG TABLET PO SCH (20:45)
[2021-09-10] MEDS: PRAZOSIN HCL 1 MG CAPSULE PO SCH (20:45)
[2021-09-10] MEDS ORDERED: MIRTAZAPINE 30 MG TABLET PO SCH (21:00)
[2021-09-11] MEDS: FLUoxetine HCL 20 MG CAPSULE PO SCH (08:32)
[2021-09-11] MEDS: MULTIVITAMINS WITH MINERALS, THERAPEUTIC TABLET PO SCH (08:33)
[2021-09-11] MEDS: FOLIC ACID 1 MG TABLET PO SCH (08:34)
[2021-09-11] MEDS: OMEGA-3/DHA/EPA/FISH OIL 1,000 MG CAPSULE PO SCH (08:34)
[2021-09-11] MEDS: THIAMINE 100 MG TABLET PO SCH (08:34)
[2021-09-11] MEDS: NALTREXONE HCL 50 MG TABLET PO SCH (08:34)
[2021-09-11] MEDS: TERBINAFINE HCL 1% 30 GM CREAM TP SCH ×2 (08:35→16:42)
[2021-09-11 08:50] VITALS: BP 108/59
[2021-09-11] MEDS: ESTRADIOL 1 MG TABLET PO SCH ×2 (09:00→20:05)
[2021-09-11 17:07] VITALS: BP 13/78
[2021-09-11] MEDS: MIRTAZAPINE 30 MG TABLET PO SCH (20:04)
[2021-09-11] MEDS: MELATONIN 5 MG TABLET PO SCH (20:04)
[2021-09-11] MEDS: OLANZapine 10 MG TABLET PO SCH (20:04)
[2021-09-11] MEDS: MedroxyPROGESTERone ACET 5 MG TABLET PO SCH (20:05)
[2021-09-11] MEDS: PRAZOSIN HCL 1 MG CAPSULE PO SCH (20:05)
[2021-09-11 23:47] LABS: COVID AG,FIA SOURCE NASAL SWAB
[2021-09-12] MEDS: OMEGA-3/DHA/EPA/FISH OIL 1,000 MG CAPSULE PO SCH (08:59)
[2021-09-12] MEDS: MULTIVITAMINS WITH MINERALS, THERAPEUTIC TABLET PO SCH (08:59)
[2021-09-12] MEDS: THIAMINE 100 MG TABLET PO SCH (08:59)
[2021-09-12] MEDS: FLUoxetine HCL 20 MG CAPSULE PO SCH (08:59)
[2021-09-12] MEDS: FOLIC ACID 1 MG TABLET PO SCH (09:00)
[2021-09-12] MEDS: TERBINAFINE HCL 1% 30 GM CREAM TP SCH ×2 (09:00→16:45)
[2021-09-12] MEDS: NALTREXONE HCL 50 MG TABLET PO SCH (09:00)
[2021-09-12] MEDS: ESTRADIOL 1 MG TABLET PO SCH ×2 (09:01→20:44)
[2021-09-12 15:03] VITALS: BP 119/70
[2021-09-12 17:26] VITALS: BP 126/72
[2021-09-12] MEDS: MedroxyPROGESTERone ACET 5 MG TABLET PO SCH (20:44)
[2021-09-12] MEDS: MIRTAZAPINE 30 MG TABLET PO SCH (20:46)
[2021-09-12] MEDS: OLANZapine 10 MG TABLET PO SCH (20:46)
[2021-09-12] MEDS: PRAZOSIN HCL 1 MG CAPSULE PO SCH (20:46)
[2021-09-12] MEDS: MELATONIN 5 MG TABLET PO SCH (20:47)
[2021-09-13] MEDS: MULTIVITAMINS WITH MINERALS, THERAPEUTIC TABLET PO SCH (08:35)
[2021-09-13] MEDS: ESTRADIOL 1 MG TABLET PO SCH ×2 (08:35→20:26)
[2021-09-13] MEDS: FLUoxetine HCL 20 MG CAPSULE PO SCH (08:41)
[2021-09-13] MEDS: NALTREXONE HCL 50 MG TABLET PO SCH (08:41)
[2021-09-13] MEDS: FOLIC ACID 1 MG TABLET PO SCH (08:41)
[2021-09-13] MEDS: OMEGA-3/DHA/EPA/FISH OIL 1,000 MG CAPSULE PO SCH (08:41)
[2021-09-13] MEDS: THIAMINE 100 MG TABLET PO SCH (08:41)
[2021-09-13] MEDS: TERBINAFINE HCL 1% 30 GM CREAM TP SCH ×2 (08:43→16:53)
[2021-09-13 09:13] VITALS: BP 93/52
[2021-09-13 16:15] VITALS: BP 121/62
[2021-09-13] MEDS: MedroxyPROGESTERone ACET 5 MG TABLET PO SCH (20:25)
[2021-09-13] MEDS: OLANZapine 10 MG TABLET PO SCH (20:26)
[2021-09-13] MEDS: MELATONIN 5 MG TABLET PO SCH (20:26)
[2021-09-13] MEDS: PRAZOSIN HCL 1 MG CAPSULE PO SCH (20:26)
[2021-09-13] MEDS: MIRTAZAPINE 30 MG TABLET PO SCH (20:27)
[2021-09-14] MEDS: ESTRADIOL 1 MG TABLET PO SCH ×2 (08:51→20:20)
[2021-09-14] MEDS: FLUoxetine HCL 20 MG CAPSULE PO SCH (08:51)
[2021-09-14] MEDS: NALTREXONE HCL 50 MG TABLET PO SCH (08:52)
[2021-09-14] MEDS: TERBINAFINE HCL 1% 30 GM CREAM TP SCH ×2 (08:52→16:49)
[2021-09-14] MEDS: MULTIVITAMINS WITH MINERALS, THERAPEUTIC TABLET PO SCH (08:52)
[2021-09-14] MEDS: OMEGA-3/DHA/EPA/FISH OIL 1,000 MG CAPSULE PO SCH (08:52)
[2021-09-14] MEDS: FOLIC ACID 1 MG TABLET PO SCH (08:52)
[2021-09-14] MEDS: THIAMINE 100 MG TABLET PO SCH (08:52)
[2021-09-14 09:16] VITALS: BP 108/62
[2021-09-14 16:22] VITALS: BP 116/68
[2021-09-14] MEDS: MELATONIN 5 MG TABLET PO SCH (20:20)
[2021-09-14] MEDS: MedroxyPROGESTERone ACET 5 MG TABLET PO SCH (20:20)
[2021-09-14] MEDS: MIRTAZAPINE 30 MG TABLET PO SCH (20:21)
[2021-09-14] MEDS: OLANZapine 10 MG TABLET PO SCH (20:21)
[2021-09-14] MEDS: PRAZOSIN HCL 1 MG CAPSULE PO SCH (20:21)
[2021-09-15] MEDS: OMEGA-3/DHA/EPA/FISH OIL 1,000 MG CAPSULE PO SCH (08:18)
[2021-09-15] MEDS: FLUoxetine HCL 20 MG CAPSULE PO SCH (08:18)
[2021-09-15] MEDS: FOLIC ACID 1 MG TABLET PO SCH (08:18)
[2021-09-15] MEDS: NALTREXONE HCL 50 MG TABLET PO SCH (08:18)
[2021-09-15] MEDS: MULTIVITAMINS WITH MINERALS, THERAPEUTIC TABLET PO SCH (08:18)
[2021-09-15] MEDS: THIAMINE 100 MG TABLET PO SCH (08:18)
[2021-09-15] MEDS: ESTRADIOL 1 MG TABLET PO SCH ×2 (08:19→20:20)
[2021-09-15] MEDS: TERBINAFINE HCL 1% 30 GM CREAM TP SCH ×2 (08:19→17:01)
[2021-09-15 08:35] VITALS: BP 91/55
[2021-09-15 16:00] VITALS: BP 113/65
[2021-09-15 16:33] VITALS: BP 113/65
[2021-09-15] MEDS: OLANZapine 10 MG TABLET PO SCH (20:20)
[2021-09-15] MEDS: MedroxyPROGESTERone ACET 5 MG TABLET PO SCH (20:20)
[2021-09-15] MEDS: MELATONIN 5 MG TABLET PO SCH (20:20)
[2021-09-15] MEDS: MIRTAZAPINE 30 MG TABLET PO SCH (20:20)
[2021-09-15] MEDS: PRAZOSIN HCL 1 MG CAPSULE PO SCH (20:20)
[2021-09-16] MEDS: NALTREXONE HCL 50 MG TABLET PO SCH (08:55)
[2021-09-16] MEDS: OMEGA-3/DHA/EPA/FISH OIL 1,000 MG CAPSULE PO SCH (08:55)
[2021-09-16] MEDS: MULTIVITAMINS WITH MINERALS, THERAPEUTIC TABLET PO SCH (08:55)
[2021-09-16] MEDS: FLUoxetine HCL 20 MG CAPSULE PO SCH (08:55)
[2021-09-16] MEDS: FOLIC ACID 1 MG TABLET PO SCH (08:55)
[2021-09-16] MEDS: TERBINAFINE HCL 1% 30 GM CREAM TP SCH ×2 (08:56→16:21)
[2021-09-16] MEDS: THIAMINE 100 MG TABLET PO SCH (08:56)
[2021-09-16 09:16] VITALS: BP 158/79
[2021-09-16] MEDS: ESTRADIOL 1 MG TABLET PO SCH ×2 (10:00→20:01)
[2021-09-16 16:00] VITALS: BP 119/76
[2021-09-16] MEDS: MedroxyPROGESTERone ACET 5 MG TABLET PO SCH (20:00)
[2021-09-16] MEDS: MIRTAZAPINE 30 MG TABLET PO SCH (20:02)
[2021-09-16] MEDS: MELATONIN 5 MG TABLET PO SCH (20:02)
[2021-09-16] MEDS: OLANZapine 10 MG TABLET PO SCH (20:02)
[2021-09-16] MEDS: PRAZOSIN HCL 1 MG CAPSULE PO SCH (20:04)
[2021-09-16] MEDS ORDERED: NALT50TA PO (20:21)
[2021-09-16] MEDS ORDERED: PRAZ1 PO (20:21)
[2021-09-16] MEDS ORDERED: OMEG-135 PO (20:21)
[2021-09-16] MEDS ORDERED: OLAN10 PO (20:21)
[2021-09-16] MEDS ORDERED: MELA5TAB40 PO (20:21)
[2021-09-16] MEDS ORDERED: MIRT30 PO (20:21)
[2021-09-16] MEDS ORDERED: PROZ20 PO (20:21)
[2021-09-17 08:00] VITALS: BP 143/75
[2021-09-17] MEDS: THIAMINE 100 MG TABLET PO SCH (08:14)
[2021-09-17] MEDS: FOLIC ACID 1 MG TABLET PO SCH (08:14)
[2021-09-17] MEDS: MULTIVITAMINS WITH MINERALS, THERAPEUTIC TABLET PO SCH (08:14)
[2021-09-17] MEDS: NALTREXONE HCL 50 MG TABLET PO SCH (08:14)
[2021-09-17] MEDS: OMEGA-3/DHA/EPA/FISH OIL 1,000 MG CAPSULE PO SCH (08:14)
[2021-09-17] MEDS: FLUoxetine HCL 20 MG CAPSULE PO SCH (08:14)
[2021-09-17] MEDS: ESTRADIOL 1 MG TABLET PO SCH (08:15)
[2021-09-17] MEDS: TERBINAFINE HCL 1% 30 GM CREAM TP SCH (09:00)
== END 2021-09-17 14:35 | disposition home or self-care (01) | DRG 750 ==
LOC: EMS 18:48 → 3EI 23:06
PROVIDERS: ADMIT Psychiatry & Neurology Psychiatry; ATTEND Psychiatry & Neurology Psychiatry
DX: F25.1 Schizoaffective disorder, depressive type (principal); R45.851 Suicidal ideations; F22 Delusional disorders; F31.81 Bipolar II disorder; F11.90 Opioid use, unspecified, uncomplicated; F15.90 Other stimulant use, unspecified, uncomplicated; F43.10 Post-traumatic stress disorder, unspecified; I10 Essential (primary) hypertension; F90.9 Attention-deficit hyperactivity disorder, unspecified type; F17.210 Nicotine dependence, cigarettes, uncomplicated; Z20.822 Contact with and (suspected) exposure to COVID-19; F12.20 Cannabis dependence, uncomplicated; F06.30 Mood disorder due to known physiological condition, unspecified; Z59.00 Homelessness unspecified; Z91.19 Patient's noncompliance with other medical treatment and regimen; Z91.14 Patient's other noncompliance with medication regimen; Z72.89 Other problems related to lifestyle
CPT/HCPCS: 80053; 80061; 81003; 85025; 87081; 99285; G0480; Q9967

== ENCOUNTER 2021-10-02 18:55 | Inpatient (IN) | payer MEDICAID, OTHER ==
[~2021-10-02] VITALS: Ht 157.5 cm; Wt 76.3 kg
[~2021-10-02 18:55] MED LIST changes: +OLAN10 PO; +OMEG-108 PO; -OMEG-135 PO; +PROZ20 PO
[2021-10-02 19:55] LABS: BASOPHILS % (AUTO) 0.2 % (0.0-2.0); EOSINOPHILS % (AUTO) 1.3 % (1.0-6.0); HEMATOCRIT 38.1 % (41-53); HEMOGLOBIN 12.7 g/dL (13.5-17.5); LYMPHOCYTES # (AUTO) 1.4 K/uL (1.0-4.8); LYMPHOCYTES % (AUTO) 15.8 % (22.0-44.0); MEAN CORPUSCULAR HEMOGLOBIN 25.8 pg (26.0-34.0); MEAN CORPUSCULAR HGB CONC 33.3 G/dL (31.0-37.0); MEAN CORPUSCULAR VOLUME 77 fL (80-100); MONOCYTES # (AUTO) 1.3 K/uL (0.1-1.0); MONOCYTES % (AUTO) 15.4 % (2.0-9.0); NEUTROPHILS # (AUTO) 5.9 K/uL (1.8-7.7); NEUTROPHILS % (AUTO) 67.3 % (40.0-70.0); PLATELET COUNT (AUTO) 299 K/uL (150-450); RED BLOOD CELL COUNT(AUTO) 4.92 MIL/uL (4.50-5.90); RED CELL DISTRIBUTION WIDTH 13.9 % (11.5-14.5)
[2021-10-02 20:01] LABS: COVID AG,FIA SOURCE NASOPHARYNGEAL
[2021-10-02 20:06] LABS: CALCIUM, TOTAL 9.2 mg/dL (8.8-10.5); CARBON DIOXIDE 31 mmol/L (22-29); CHLORIDE 103 mmol/L (98-107); CREATININE 0.73 mg/dL (0.60-1.30); GLOMERULAR FILTR. RATE CALC > 60 mL/min (>60); GLUCOSE,RANDOM 86 mg/dL (70-110); POTASSIUM 3.2 mmol/L (3.5-5.1); UREA NITROGEN, BLOOD 7 mg/dL (7-18)
[2021-10-02 20:12] LABS: ALANINE AMINOTRANSFERASE 23 U/L (12-78); ALBUMIN 3.8 g/dL (3.4-5.0); ALKALINE PHOSPHATASE 83 U/L (46-116); ANION GAP 8 mmol/L (8-16); ASPARTATE AMINOTRANSFERASE 14 U/L (15-37); BILIRUBIN,TOTAL 0.5 mg/dL (0.1-1.0); SODIUM SERUM 142 mmol/L (136-145); TOTAL PROTEIN, SERUM 7.8 g/dL (6.4-8.2)
[2021-10-02] MEDS ORDERED: LOPERAMIDE HCL 2 MG CAPSULE PO PRN (21:15)
[2021-10-02] MEDS ORDERED: IBUPROFEN 600 MG TABLET PO PRN (21:15)
[2021-10-02] MEDS ORDERED: CloNIDine HCL 0.1 MG TABLET PO PRN (21:15)
[2021-10-02] MEDS ORDERED: ZOLPIDEM TARTRATE 10 MG TABLET PO PRN (21:15)
[2021-10-02] MEDS ORDERED: GuaiFENesin/D-METHORPHAN [SUGAR-FREE] 200-20MG/10 ML SYRUP UDCUP PO PRN (21:15)
[2021-10-02] MEDS ORDERED: PROMETHAZINE HCL 25 MG TABLET PO PRN (21:15)
[2021-10-02] MEDS ORDERED: MAGNESIUM HYDROXIDE SUSPENSION 30 ML UDCUP PO PRN (21:15)
[2021-10-02] MEDS ORDERED: OLANZapine 5 MG RAPDIS TABLET PO PRN (21:15)
[2021-10-02] MEDS ORDERED: ACETAMINOPHEN 325 MG TABLET PO PRN (21:15)
[2021-10-02] MEDS ORDERED: HydrOXYzine PAMOATE 50 MG CAPSULE PO PRN ×2 (21:15)
[2021-10-02] MEDS ORDERED: MAG HYDROX/AL HYDROX/SIMETH ES 30 ML SUSPENSION UDCUP PO PRN ×2 (21:15)
[2021-10-02 21:21] LABS: LITHIUM < 0.20 mmol/L (0.60-1.20)
[2021-10-02] MEDS: CloNIDine HCL 0.1 MG TABLET PO SCH (21:53)
[2021-10-03] VITALS (11 sets, daily range): BP systolic 93–129; BP diastolic 58–89
[2021-10-03] MEDS ORDERED: LORazepam 2 MG TABLET PO PRN (01:15)
[2021-10-03] MEDS ORDERED: HALOPERIDOL 5 MG TABLET PO PRN (01:15)
[2021-10-03] MEDS ORDERED: ZOLPIDEM TARTRATE 10 MG TABLET PO PRN (01:15)
[2021-10-03] MEDS ORDERED: INFLUENZA VIRUS VACCINE QVS 2021-22 (6MO+)/PF 60 MCG/0.5 ML SYRINGE IM. ONE (01:45)
[2021-10-03] MEDS: CloNIDine HCL 0.1 MG TABLET PO SCH ×4 (05:37→21:43)
[2021-10-03 08:51] LABS: CHOL/HDL RATIO 2.6 (4.2-7.3); HEMOGLOBIN A1C 5.5 % (3.8-5.6)
[2021-10-03] MEDS ORDERED: PALIPERIDONE PALMITATE 234 MG/1.5 ML SYRINGE IM ONE (09:00)
[2021-10-03] MEDS: MULTIVITAMINS WITH MINERALS, THERAPEUTIC TABLET PO SCH (09:29)
[2021-10-03] MEDS: FLUoxetine HCL 10 MG CAPSULE PO SCH (09:29)
[2021-10-03] MEDS: THIAMINE 100 MG TABLET PO SCH ×2 (09:29→17:15)
[2021-10-03] MEDS: FOLIC ACID 1 MG TABLET PO SCH (09:29)
[2021-10-03] MEDS: POTASSIUM CHLORIDE 20 MEQ ER TABLET PO SCH ×2 (12:00→20:59)
[2021-10-03] MEDS: MIRTAZAPINE 15 MG TABLET PO SCH (20:58)
[2021-10-03] MEDS: OLANZapine 10 MG RAPDIS TABLET PO SCH (20:58)
[2021-10-03] MEDS: PRAZOSIN HCL 1 MG CAPSULE PO SCH (20:58)
[2021-10-04] MEDS: CloNIDine HCL 0.1 MG TABLET PO SCH ×4 (06:00→21:27)
[2021-10-04 09:24] VITALS: BP_SYST 89; BP_DIAS 51; BP_DIAS 89
[2021-10-04] MEDS: FLUoxetine HCL 10 MG CAPSULE PO SCH (10:15)
[2021-10-04] MEDS: THIAMINE 100 MG TABLET PO SCH ×2 (10:18→17:42)
[2021-10-04] MEDS: FOLIC ACID 1 MG TABLET PO SCH (10:18)
[2021-10-04] MEDS: MULTIVITAMINS WITH MINERALS, THERAPEUTIC TABLET PO SCH (10:18)
[2021-10-04 16:00] VITALS: BP 110/67
[2021-10-04] MEDS: OLANZapine 10 MG RAPDIS TABLET PO SCH (20:44)
[2021-10-04] MEDS: PRAZOSIN HCL 1 MG CAPSULE PO SCH (20:44)
[2021-10-04] MEDS: MIRTAZAPINE 15 MG TABLET PO SCH (20:45)
[2021-10-05 06:00] VITALS: BP 92/53
[2021-10-05] MEDS: CloNIDine HCL 0.1 MG TABLET PO SCH ×4 (06:00→20:15)
[2021-10-05 08:10] VITALS: BP 98/66
[2021-10-05] MEDS: THIAMINE 100 MG TABLET PO SCH ×2 (08:41→16:13)
[2021-10-05] MEDS: FOLIC ACID 1 MG TABLET PO SCH (08:41)
[2021-10-05] MEDS: FLUoxetine HCL 10 MG CAPSULE PO SCH (08:41)
[2021-10-05] MEDS: MULTIVITAMINS WITH MINERALS, THERAPEUTIC TABLET PO SCH (08:41)
[2021-10-05 16:37] VITALS: BP 99/57
[2021-10-05 16:52] VITALS: BP 99/57
[2021-10-05] MEDS: OLANZapine 10 MG RAPDIS TABLET PO SCH (20:15)
[2021-10-05] MEDS: MIRTAZAPINE 15 MG TABLET PO SCH (20:15)
[2021-10-05] MEDS: PRAZOSIN HCL 1 MG CAPSULE PO SCH (20:15)
[2021-10-06] MEDS: CloNIDine HCL 0.1 MG TABLET PO SCH ×4 (06:00→20:05)
[2021-10-06] MEDS: FLUoxetine HCL 10 MG CAPSULE PO SCH (09:26)
[2021-10-06] MEDS: THIAMINE 100 MG TABLET PO SCH ×2 (09:26→16:08)
[2021-10-06] MEDS: FOLIC ACID 1 MG TABLET PO SCH (09:26)
[2021-10-06] MEDS: MULTIVITAMINS WITH MINERALS, THERAPEUTIC TABLET PO SCH (09:26)
[2021-10-06 10:18] VITALS: BP 94/51
[2021-10-06 10:26] VITALS: BP 94/51
[2021-10-06 16:17] VITALS: BP 96/50
[2021-10-06 16:30] VITALS: BP 96/50
[2021-10-06] MEDS: MIRTAZAPINE 15 MG TABLET PO SCH (20:03)
[2021-10-06] MEDS: OLANZapine 10 MG RAPDIS TABLET PO SCH (20:03)
[2021-10-06] MEDS: PRAZOSIN HCL 1 MG CAPSULE PO SCH (20:03)
[2021-10-07] MEDS: CloNIDine HCL 0.1 MG TABLET PO SCH ×4 (06:00→20:04)
[2021-10-07 06:04] VITALS: BP 97/57
[2021-10-07 06:05] VITALS: BP 97/57
[2021-10-07] MEDS: FLUoxetine HCL 10 MG CAPSULE PO SCH (08:37)
[2021-10-07] MEDS: MULTIVITAMINS WITH MINERALS, THERAPEUTIC TABLET PO SCH (08:37)
[2021-10-07] MEDS: THIAMINE 100 MG TABLET PO SCH ×2 (08:37→16:06)
[2021-10-07] MEDS: FOLIC ACID 1 MG TABLET PO SCH (08:38)
[2021-10-07] MEDS ORDERED: PALIPERIDONE PALMITATE 156 MG/ML SYRINGE IM ONE (09:00)
[2021-10-07 09:35] VITALS: BP 96/43
[2021-10-07 16:00] VITALS: BP 104/52
[2021-10-07] MEDS: OLANZapine 10 MG RAPDIS TABLET PO SCH (20:04)
[2021-10-07] MEDS: PRAZOSIN HCL 1 MG CAPSULE PO SCH (20:04)
[2021-10-07] MEDS: MIRTAZAPINE 15 MG TABLET PO SCH (20:04)
[2021-10-08] MEDS ORDERED: FLUoxetine HCL 10 MG CAPSULE PO SCH (09:00)
[2021-10-08] MEDS: FOLIC ACID 1 MG TABLET PO SCH (09:50)
[2021-10-08] MEDS: THIAMINE 100 MG TABLET PO SCH ×2 (09:50→16:06)
[2021-10-08] MEDS: MULTIVITAMINS WITH MINERALS, THERAPEUTIC TABLET PO SCH (09:50)
[2021-10-08 09:54] VITALS: BP 101/62
[2021-10-08 17:05] VITALS: BP 110/69
[2021-10-08] MEDS: OLANZapine 10 MG RAPDIS TABLET PO SCH (20:05)
[2021-10-08] MEDS: MIRTAZAPINE 15 MG TABLET PO SCH (20:05)
[2021-10-08] MEDS: PRAZOSIN HCL 1 MG CAPSULE PO SCH (20:05)
[2021-10-08 21:04] LABS: COVID AG,FIA SOURCE NASOPHARYNGEAL
[2021-10-09 08:00] VITALS: BP 102/61
[2021-10-09] MEDS: FOLIC ACID 1 MG TABLET PO SCH (08:35)
[2021-10-09] MEDS: FLUoxetine HCL 20 MG CAPSULE PO SCH (08:35)
[2021-10-09] MEDS: MULTIVITAMINS WITH MINERALS, THERAPEUTIC TABLET PO SCH (08:35)
[2021-10-09] MEDS: THIAMINE 100 MG TABLET PO SCH ×2 (08:35→16:23)
[2021-10-09 16:52] VITALS: BP 110/80
[2021-10-09] MEDS: MIRTAZAPINE 15 MG TABLET PO SCH (20:01)
[2021-10-09] MEDS: OLANZapine 5 MG RAPDIS TABLET PO SCH (20:03)
[2021-10-09] MEDS: PRAZOSIN HCL 1 MG CAPSULE PO SCH (20:03)
[2021-10-10 08:02] VITALS: BP 138/73
[2021-10-10] MEDS: THIAMINE 100 MG TABLET PO SCH ×2 (09:41→16:38)
[2021-10-10] MEDS: MULTIVITAMINS WITH MINERALS, THERAPEUTIC TABLET PO SCH (09:41)
[2021-10-10] MEDS: FLUoxetine HCL 20 MG CAPSULE PO SCH (09:41)
[2021-10-10] MEDS: FOLIC ACID 1 MG TABLET PO SCH (09:43)
[2021-10-10 17:05] VITALS: BP 117/66
[2021-10-10] MEDS: OLANZapine 5 MG RAPDIS TABLET PO SCH (20:32)
[2021-10-10] MEDS: MIRTAZAPINE 15 MG TABLET PO SCH (20:32)
[2021-10-10] MEDS: PRAZOSIN HCL 1 MG CAPSULE PO SCH (20:32)
[2021-10-11] MEDS: MULTIVITAMINS WITH MINERALS, THERAPEUTIC TABLET PO SCH (08:40)
[2021-10-11] MEDS: FLUoxetine HCL 20 MG CAPSULE PO SCH (08:40)
[2021-10-11] MEDS: FOLIC ACID 1 MG TABLET PO SCH (08:40)
[2021-10-11] MEDS: THIAMINE 100 MG TABLET PO SCH ×2 (08:40→17:15)
[2021-10-11 09:56] VITALS: BP 109/63
[2021-10-11 12:53] VITALS: BP 109/63
[2021-10-11 16:00] VITALS: BP 142/83
[2021-10-11] MEDS ORDERED: PALIPERIDONE PALMITATE 156 MG/ML SYRINGE IM ONE (16:00)
[2021-10-11] MEDS: OLANZapine 5 MG RAPDIS TABLET PO SCH (20:00)
[2021-10-11] MEDS: MIRTAZAPINE 15 MG TABLET PO SCH (20:00)
[2021-10-11] MEDS: PRAZOSIN HCL 1 MG CAPSULE PO SCH (20:00)
[2021-10-12] MEDS: THIAMINE 100 MG TABLET PO SCH (08:24)
[2021-10-12] MEDS: MULTIVITAMINS WITH MINERALS, THERAPEUTIC TABLET PO SCH (08:24)
[2021-10-12] MEDS: FLUoxetine HCL 20 MG CAPSULE PO SCH (08:24)
[2021-10-12] MEDS: FOLIC ACID 1 MG TABLET PO SCH (08:24)
[2021-10-12 09:31] VITALS: BP 112/80
[2021-10-12 16:58] VITALS: BP 130/75
[2021-10-12] MEDS: OLANZapine 5 MG RAPDIS TABLET PO SCH (20:02)
[2021-10-12] MEDS: MIRTAZAPINE 15 MG TABLET PO SCH (20:02)
[2021-10-12] MEDS: PRAZOSIN HCL 1 MG CAPSULE PO SCH (20:02)
[2021-10-13 09:03] VITALS: BP 103/63
[2021-10-13] MEDS: MULTIVITAMINS WITH MINERALS, THERAPEUTIC TABLET PO SCH (09:33)
[2021-10-13] MEDS: FLUoxetine HCL 20 MG CAPSULE PO SCH (09:33)
[2021-10-13 16:00] VITALS: BP 115/69
[2021-10-13] MEDS: MIRTAZAPINE 15 MG TABLET PO SCH (20:01)
[2021-10-13] MEDS: OLANZapine 5 MG RAPDIS TABLET PO SCH (20:01)
[2021-10-13] MEDS: PRAZOSIN HCL 1 MG CAPSULE PO SCH (20:01)
[2021-10-14] MEDS: MULTIVITAMINS WITH MINERALS, THERAPEUTIC TABLET PO SCH (08:01)
[2021-10-14] MEDS: FLUoxetine HCL 20 MG CAPSULE PO SCH (08:01)
[2021-10-14 08:46] VITALS: BP 109/69
[2021-10-14 16:52] VITALS: BP 122/74
[2021-10-14] MEDS: MIRTAZAPINE 15 MG TABLET PO SCH (19:58)
[2021-10-14] MEDS: OLANZapine 5 MG RAPDIS TABLET PO SCH (19:59)
[2021-10-14] MEDS: PRAZOSIN HCL 1 MG CAPSULE PO SCH (19:59)
[2021-10-15] MEDS: FLUoxetine HCL 20 MG CAPSULE PO SCH (08:54)
[2021-10-15] MEDS: MULTIVITAMINS WITH MINERALS, THERAPEUTIC TABLET PO SCH (08:54)
[2021-10-15 10:12] VITALS: BP 127/60
[2021-10-15 14:27] LABS: COVID AG,FIA SOURCE NASOPHARYNGEAL
[2021-10-15 16:00] VITALS: BP 145/83
[2021-10-15] MEDS ORDERED: PROZ20 PO (16:02)
[2021-10-15] MEDS ORDERED: PALI117D IM (16:02)
[2021-10-15] MEDS ORDERED: PRAZ1 PO (16:02)
[2021-10-15] MEDS ORDERED: MIRT-89 PO (16:02)
== END 2021-10-15 17:43 | disposition home or self-care (01) | DRG 750 ==
LOC: EMS 18:59 → 3EI 10-03 01:16
PROVIDERS: ADMIT Psychiatry & Neurology Psychiatry; ATTEND Psychiatry & Neurology Psychiatry
DX: F25.1 Schizoaffective disorder, depressive type (principal); Z59.02 Unsheltered homelessness; E87.6 Hypokalemia; F11.90 Opioid use, unspecified, uncomplicated; F41.9 Anxiety disorder, unspecified; I10 Essential (primary) hypertension; F17.210 Nicotine dependence, cigarettes, uncomplicated; Z20.822 Contact with and (suspected) exposure to COVID-19; Z55.9 Problems related to education and literacy, unspecified; Z63.9 Problem related to primary support group, unspecified; Z65.3 Problems related to other legal circumstances; Z91.14 Patient's other noncompliance with medication regimen
CPT/HCPCS: 80053; 80061; 80178; 83036; 84132; 85025; 86592; 87081; 99285; G0480

== ENCOUNTER 2022-04-02 14:48 | Inpatient (IN) | payer MEDICAID, OTHER ==
[~2022-04-02] VITALS: Ht 182.9 cm; Wt 67.6 kg
[~2022-04-02 14:48] MED LIST changes: -ESTR-95 PO; -FLUO20CA36 PO; -LITH300C3 PO; -MELA5TAB40 PO; +MIRT-89 PO; -MIRT30 PO; -NALT50TA PO; -OLAN10 PO; -OLAN10TA26 PO; -OMEG-108 PO; +PALI117D IM; -PROV5 PO
[2022-04-02 16:42] LABS: BASOPHILS % (AUTO) 0.3 % (0.0-2.0); EOSINOPHILS % (AUTO) 1.7 % (1.0-6.0); HEMATOCRIT 37.6 % (41-53); HEMOGLOBIN 12.3 g/dL (13.5-17.5); LYMPHOCYTES # (AUTO) 1.3 K/uL (1.0-4.8); LYMPHOCYTES % (AUTO) 15.1 % (22.0-44.0); MEAN CORPUSCULAR HEMOGLOBIN 23.9 pg (26.0-34.0); MEAN CORPUSCULAR HGB CONC 32.6 G/dL (31.0-37.0); MEAN CORPUSCULAR VOLUME 73 fL (80-100); MONOCYTES # (AUTO) 0.7 K/uL (0.1-1.0); MONOCYTES % (AUTO) 8.5 % (2.0-9.0); NEUTROPHILS # (AUTO) 6.4 K/uL (1.8-7.7); NEUTROPHILS % (AUTO) 74.4 % (40.0-70.0); PLATELET COUNT (AUTO) 340 K/uL (150-450); RED BLOOD CELL COUNT(AUTO) 5.13 MIL/uL (4.50-5.90); RED CELL DISTRIBUTION WIDTH 15.8 % (11.5-14.5)
[2022-04-02 16:53] LABS: ANION GAP 9 mmol/L (8-16); CALCIUM, TOTAL 9.1 mg/dL (8.8-10.5); CARBON DIOXIDE 26 mmol/L (22-29); CHLORIDE 103 mmol/L (98-107); GLUCOSE,RANDOM 102 mg/dL (70-110); POTASSIUM 4.6 mmol/L (3.5-5.1); SODIUM SERUM 138 mmol/L (136-145); UREA NITROGEN, BLOOD 11 mg/dL (7-18)
[2022-04-02 16:54] LABS: GLOMERULAR FILTR. RATE CALC > 60 mL/min (>60)
[2022-04-02 17:00] LABS: ALANINE AMINOTRANSFERASE 15 U/L (12-78); ALBUMIN 3.7 g/dL (3.4-5.0); ALKALINE PHOSPHATASE 80 U/L (46-116); ASPARTATE AMINOTRANSFERASE 6 U/L (15-37); BILIRUBIN,TOTAL 0.3 mg/dL (0.1-1.0); TOTAL PROTEIN, SERUM 7.5 g/dL (6.4-8.2)
[2022-04-02 19:58] LABS: COVID AG,FIA SOURCE NASOPHARYNGEAL
[2022-04-02 20:09] LABS: AMPHET/METH SCREEN,URINE POSITIVE (NEGATIVE); BARBITURATE SCREEN, URINE NEGATIVE (NEGATIVE); BENZODIAZEPINES SCREEN,URINE NEGATIVE (NEGATIVE); CANNABINOID SCREEN,URINE POSITIVE (NEGATIVE); COCAINE SCREEN,URINE NEGATIVE (NEGATIVE); METHADONE SCREEN, URINE NEGATIVE (NEGATIVE); OPIATE SCREEN,URINE NEGATIVE (NEGATIVE)
[2022-04-02 20:18] LABS: PHENCYCLIDINE SCREEN,URINE NEGATIVE (NEGATIVE)
[2022-04-02] MEDS ORDERED: HALOPERIDOL 5 MG TABLET PO PRN (20:30)
[2022-04-02] MEDS ORDERED: LORazepam 2 MG TABLET PO PRN (20:30)
[2022-04-03 01:45] VITALS: BP 120/82
[2022-04-03 02:00] VITALS: BP 120/82
[2022-04-03] MEDS ORDERED: PNEUMOCOCCAL VACCINE POLYVALENT 0.5 ML VIAL [PPSV23] IM. ONE (03:45)
[2022-04-03 08:00] VITALS: BP 135/76
[2022-04-03 08:09] LABS: APPEARANCE,URINE CLEAR (CLEAR); BILIRUBIN,URINE NEGATIVE (NEGATIVE); GLUCOSE, URINE (UA) NEGATIVE (NEGATIVE); KETONES,URINE NEGATIVE (NEGATIVE); LEUKOCYTE ESTERASE ,URINE NEGATIVE (NEGATIVE); NITRATE,URINE NEGATIVE (NEGATIVE); OCCULT BLOOD,URINE NEGATIVE (NEGATIVE); PH,URINE 6.5 (5.0-8.0); UROBILINOGEN,URINE <=1.0 mg/dL (<=1.0)
[2022-04-03 08:10] LABS: PROTEIN,URINE NEGATIVE (NEGATIVE)
[2022-04-03 16:39] VITALS: BP 133/71
[2022-04-03] MEDS ORDERED: LOPERAMIDE HCL 2 MG CAPSULE PO PRN (23:00)
[2022-04-03] MEDS ORDERED: BACITRACIN 28 GM OINTMENT TP PRN (23:00)
[2022-04-03] MEDS ORDERED: CloNIDine HCL 0.1 MG TABLET PO PRN (23:00)
[2022-04-03] MEDS ORDERED: BENZOCAINE/MENTHOL LOZENGE PO PRN (23:00)
[2022-04-03] MEDS ORDERED: ACETAMINOPHEN 325 MG TABLET PO PRN (23:00)
[2022-04-03] MEDS ORDERED: ONDANSETRON HCL 4 MG TABLET PO PRN (23:00)
[2022-04-03] MEDS ORDERED: IBUPROFEN 600 MG TABLET PO PRN (23:00)
[2022-04-03] MEDS ORDERED: ALBUTEROL SULFATE HFA 90 MCG/PUFF 8 GM INHALER IH PRN (23:00)
[2022-04-03] MEDS ORDERED: MAGNESIUM HYDROXIDE SUSPENSION 30 ML UDCUP PO PRN (23:00)
[2022-04-03] MEDS ORDERED: DOCUSATE SODIUM 100 MG CAPSULE PO PRN (23:00)
[2022-04-03] MEDS ORDERED: OMEPRAZOLE 20 MG CAPSULE PO PRN (23:00)
[2022-04-03] MEDS ORDERED: MAG HYDROX/AL HYDROX/SIMETH ES 30 ML SUSPENSION UDCUP PO PRN (23:00)
[2022-04-03] MEDS ORDERED: PETROLATUM,WHITE 28 GM JELLY TP PRN (23:00)
[2022-04-04 08:00] VITALS: BP 117/57
[2022-04-04] MEDS: MULTIVITAMINS WITH MINERALS, THERAPEUTIC TABLET PO SCH (08:19)
[2022-04-04] MEDS: CITALOPRAM HYDROBROMIDE 20 MG TABLET PO SCH (08:19)
[2022-04-04] MEDS: DIVALPROEX SODIUM 500 MG DR TABLET PO SCH ×2 (08:19→16:44)
[2022-04-04 16:00] VITALS: BP 137/98
[2022-04-04] MEDS: ZOLPIDEM TARTRATE 10 MG TABLET PO PRN (20:41)
[2022-04-05 08:00] VITALS: BP 109/64
[2022-04-05] MEDS: DIVALPROEX SODIUM 500 MG DR TABLET PO SCH ×2 (08:15→16:27)
[2022-04-05] MEDS: CITALOPRAM HYDROBROMIDE 20 MG TABLET PO SCH (08:15)
[2022-04-05] MEDS: MULTIVITAMINS WITH MINERALS, THERAPEUTIC TABLET PO SCH (08:15)
[2022-04-05 16:53] VITALS: BP 128/71
[2022-04-05] MEDS: ZOLPIDEM TARTRATE 10 MG TABLET PO PRN (21:27)
[2022-04-06] MEDS: CITALOPRAM HYDROBROMIDE 20 MG TABLET PO SCH (08:26)
[2022-04-06] MEDS: MULTIVITAMINS WITH MINERALS, THERAPEUTIC TABLET PO SCH (08:26)
[2022-04-06] MEDS: DIVALPROEX SODIUM 500 MG DR TABLET PO SCH ×2 (08:26→16:18)
[2022-04-06 10:16] VITALS: BP 116/77
[2022-04-06 16:00] VITALS: BP 132/83
[2022-04-06] MEDS: ZOLPIDEM TARTRATE 10 MG TABLET PO PRN (20:55)
[2022-04-07 08:07] VITALS: BP 126/78
[2022-04-07] MEDS: DIVALPROEX SODIUM 500 MG DR TABLET PO SCH ×2 (08:46→16:26)
[2022-04-07] MEDS: MULTIVITAMINS WITH MINERALS, THERAPEUTIC TABLET PO SCH (08:46)
[2022-04-07] MEDS: CITALOPRAM HYDROBROMIDE 20 MG TABLET PO SCH (08:47)
[2022-04-07 16:12] VITALS: BP 123/77
[2022-04-07 20:12] VITALS: BP 140/77
[2022-04-07] MEDS: ZOLPIDEM TARTRATE 10 MG TABLET PO PRN (20:31)
[2022-04-08 06:57] LABS: COVID AG,FIA SOURCE NASAL SWAB
[2022-04-08 08:00] VITALS: BP 115/65
[2022-04-08] MEDS: MULTIVITAMINS WITH MINERALS, THERAPEUTIC TABLET PO SCH (08:25)
[2022-04-08] MEDS: DIVALPROEX SODIUM 500 MG DR TABLET PO SCH (08:25)
[2022-04-08] MEDS: CITALOPRAM HYDROBROMIDE 20 MG TABLET PO SCH (08:25)
== END 2022-04-08 10:54 | disposition home or self-care (01) | DRG 753 ==
LOC: EMS 14:48 → 3EI 04-03 00:20
PROVIDERS: ADMIT Psychiatry & Neurology Psychiatry; ATTEND Psychiatry & Neurology Psychiatry
DX: F31.9 Bipolar disorder, unspecified (principal); R45.851 Suicidal ideations; D50.9 Iron deficiency anemia, unspecified; F15.90 Other stimulant use, unspecified, uncomplicated; F12.90 Cannabis use, unspecified, uncomplicated; F20.9 Schizophrenia, unspecified; F43.10 Post-traumatic stress disorder, unspecified; I10 Essential (primary) hypertension; F41.9 Anxiety disorder, unspecified; F90.9 Attention-deficit hyperactivity disorder, unspecified type; Z20.822 Contact with and (suspected) exposure to COVID-19; K59.00 Constipation, unspecified; G47.00 Insomnia, unspecified; K21.9 Gastro-esophageal reflux disease without esophagitis; Z79.899 Other long term (current) drug therapy; Z87.891 Personal history of nicotine dependence; Z59.00 Homelessness unspecified
CPT/HCPCS: 80053; 80164; 81003; 85025; 99285; G0480; Q0162

== ENCOUNTER 2023-06-23 22:37 | Emergency (ER) | payer MEDICAID ==
[~2023-06-23] VITALS: Ht 185.4 cm; Wt 61.8 kg
[~2023-06-23 22:37] MED LIST changes: +ARIP5TAB37 PO; +DIVA-112 PO; -MIRT-89 PO; -PALI117D IM; -PRAZ1 PO; -PROZ20 PO
[2023-06-23 22:46] VITALS: TEMP 98.3
[2023-06-23 23:07] LABS: BASOPHILS % (AUTO) 0.2 % (0.0-2.0); HEMATOCRIT 34.7 % (41-53); LYMPHOCYTES % (AUTO) 22.8 % (22.0-44.0); MEAN CORPUSCULAR HEMOGLOBIN 24.3 pg (26.0-34.0); MEAN CORPUSCULAR HGB CONC 31.8 G/dL (31.0-37.0); MEAN CORPUSCULAR VOLUME 77 fL (80-100); MONOCYTES # (AUTO) 1.2 K/uL (0.1-1.0); MONOCYTES % (AUTO) 12.9 % (2.0-9.0); NEUTROPHILS # (AUTO) 5.7 K/uL (1.8-7.7); NEUTROPHILS % (AUTO) 63.1 % (40.0-70.0); PLATELET COUNT (AUTO) 451 K/uL (150-450); RED BLOOD CELL COUNT(AUTO) 4.53 MIL/uL (4.50-5.90); RED CELL DISTRIBUTION WIDTH 15.5 % (11.5-14.5)
[2023-06-23 23:17] LABS: ANION GAP 5 mmol/L (8-16); CARBON DIOXIDE 30 mmol/L (22-29); CHLORIDE 101 mmol/L (98-107); CREATININE 0.92 mg/dL (0.60-1.30); GLOMERULAR FILTR. RATE CALC > 60 mL/min (>60); GLUCOSE,RANDOM 104 mg/dL (70-110); POTASSIUM 3.5 mmol/L (3.5-5.1); SODIUM SERUM 136 mmol/L (136-145); UREA NITROGEN, BLOOD 31 mg/dL (7-18)
[2023-06-23 23:23] LABS: ALANINE AMINOTRANSFERASE 26 U/L (12-78); ALBUMIN 3.6 g/dL (3.4-5.0); ALKALINE PHOSPHATASE 83 U/L (46-116); ASPARTATE AMINOTRANSFERASE 31 U/L (15-37); BILIRUBIN,TOTAL 0.3 mg/dL (0.1-1.0); TOTAL PROTEIN, SERUM 7.4 g/dL (6.4-8.2)
[2023-06-23 23:27] LABS: ALCOHOL, BLOOD (SERUM) < 3 mg/dL (0-10)
[2023-06-24 00:17] VITALS: BP 109/69; PULSE 89; RESP 16
[2023-06-24] MEDS: OLANZapine 5 MG TABLET PO ONE ×2 (02:08→02:17)
[2023-06-24] MEDS: DIVALPROEX SODIUM 500 MG ER TABLET PO ONE ×2 (02:08→02:17)
== END 2023-06-24 06:30 | disposition home or self-care (01) ==
LOC: EMS 22:38
DX: F25.1 Schizoaffective disorder, depressive type (principal); F41.9 Anxiety disorder, unspecified; F31.9 Bipolar disorder, unspecified; K59.00 Constipation, unspecified; K21.9 Gastro-esophageal reflux disease without esophagitis; I10 Essential (primary) hypertension; F17.210 Nicotine dependence, cigarettes, uncomplicated; F12.90 Cannabis use, unspecified, uncomplicated; F11.90 Opioid use, unspecified, uncomplicated; F15.90 Other stimulant use, unspecified, uncomplicated; Z59.00 Homelessness unspecified
CPT/HCPCS: 99284; 80053; 85025; 36415; G0480

== ENCOUNTER 2023-06-24 15:55 | Inpatient (IN) | payer MEDICAID, OTHER ==
[~2023-06-24] VITALS: Ht 185.4 cm; Wt 56.2 kg
[2023-06-24 16:56] LABS: COVID AG,FIA SOURCE NASOPHARYNGEAL
[2023-06-24 17:16] LABS: SARS-COV2 (COVID) ANTIGEN,FIA Negative (Negative)
[2023-06-24 17:25] LABS: BASOPHILS % (AUTO) 0.2 % (0.0-2.0); EOSINOPHILS % (AUTO) 1.3 % (1.0-6.0); HEMATOCRIT 35.7 % (41-53); HEMOGLOBIN 11.6 g/dL (13.5-17.5); LYMPHOCYTES # (AUTO) 0.8 K/uL (1.0-4.8); LYMPHOCYTES % (AUTO) 14.5 % (22.0-44.0); MEAN CORPUSCULAR HEMOGLOBIN 24.9 pg (26.0-34.0); MEAN CORPUSCULAR HGB CONC 32.6 G/dL (31.0-37.0); MEAN CORPUSCULAR VOLUME 76 fL (80-100); MONOCYTES # (AUTO) 0.6 K/uL (0.1-1.0); MONOCYTES % (AUTO) 11.1 % (2.0-9.0); NEUTROPHILS # (AUTO) 4.1 K/uL (1.8-7.7); NEUTROPHILS % (AUTO) 72.9 % (40.0-70.0); PLATELET COUNT (AUTO) 439 K/uL (150-450); RED BLOOD CELL COUNT(AUTO) 4.68 MIL/uL (4.50-5.90); RED CELL DISTRIBUTION WIDTH 15.3 % (11.5-14.5); WHITE BLOOD COUNT (AUTO) 5.6 K/uL (4.5-11.0)
[2023-06-24 17:30] LABS: ANION GAP 6 mmol/L (8-16); CALCIUM, TOTAL 8.8 mg/dL (8.8-10.5); CARBON DIOXIDE 29 mmol/L (22-29); CHLORIDE 102 mmol/L (98-107); CREATININE 0.55 mg/dL (0.60-1.30); GLOMERULAR FILTR. RATE CALC > 60 mL/min (>60); GLUCOSE,RANDOM 95 mg/dL (70-110); SODIUM SERUM 137 mmol/L (136-145); UREA NITROGEN, BLOOD 13 mg/dL (7-18)
[2023-06-24 17:36] LABS: ALANINE AMINOTRANSFERASE 25 U/L (12-78); ALBUMIN 3.4 g/dL (3.4-5.0); ALKALINE PHOSPHATASE 79 U/L (46-116); ASPARTATE AMINOTRANSFERASE 28 U/L (15-37); BILIRUBIN,TOTAL 0.7 mg/dL (0.1-1.0); TOTAL PROTEIN, SERUM 7.1 g/dL (6.4-8.2)
[2023-06-24 17:38] LABS: ALCOHOL, BLOOD (SERUM) < 3 mg/dL (0-10)
[2023-06-24 19:24] LABS: ALCOHOL, URINE DRUG SCREEN NEGATIVE (NEGATIVE); AMPHET/METH SCREEN,URINE POSITIVE (NEGATIVE); BARBITURATE SCREEN, URINE NEGATIVE (NEGATIVE); BENZODIAZEPINES SCREEN,URINE NEGATIVE (NEGATIVE); CANNABINOID SCREEN,URINE POSITIVE (NEGATIVE); COCAINE SCREEN,URINE NEGATIVE (NEGATIVE); METHADONE SCREEN, URINE NEGATIVE (NEGATIVE); OPIATE SCREEN,URINE NEGATIVE (NEGATIVE); PHENCYCLIDINE SCREEN,URINE NEGATIVE (NEGATIVE)
[2023-06-24 23:06] VITALS: BP 120/84; PULSE 74; RESP 18; TEMP 97.6; O2SAT 100
[2023-06-25] MEDS ORDERED: IBUPROFEN 600 MG TABLET PO PRN (06:00)
[2023-06-25] MEDS ORDERED: BACITRACIN 28 GM OINTMENT TP PRN (06:00)
[2023-06-25] MEDS ORDERED: PETROLATUM,WHITE 28 GM JELLY TP PRN (06:00)
[2023-06-25] MEDS ORDERED: MAG HYDROX/ALUMINUM HYD/SIMETH ES 30 ML SUSPENSION UDCUP PO PRN (06:00)
[2023-06-25] MEDS ORDERED: ALBUTEROL SULFATE HFA 90 MCG/PUFF 8 GM INHALER IH PRN (06:00)
[2023-06-25] MEDS ORDERED: DOCUSATE SODIUM 100 MG CAPSULE PO PRN (06:00)
[2023-06-25] MEDS ORDERED: CloNIDine HCL 0.1 MG TABLET PO PRN (06:00)
[2023-06-25] MEDS ORDERED: BENZOCAINE/MENTHOL LOZENGE PO PRN (06:00)
[2023-06-25] MEDS ORDERED: OMEPRAZOLE 20 MG CAPSULE PO PRN (06:00)
[2023-06-25] MEDS ORDERED: ONDANSETRON HCL 4 MG TABLET PO PRN (06:00)
[2023-06-25] MEDS ORDERED: MAGNESIUM HYDROXIDE SUSPENSION 30 ML UDCUP PO PRN (06:00)
[2023-06-25] MEDS ORDERED: LOPERAMIDE HCL 2 MG CAPSULE PO PRN (06:00)
[2023-06-25 10:17] VITALS: BP 130/87; PULSE 84; RESP 18; TEMP 98.8; O2SAT 95
[2023-06-25 20:24] VITALS: BP 136/89; PULSE 78; RESP 18; TEMP 98; O2SAT 96
[2023-06-26 08:39] VITALS: BP 117/64; PULSE 64; RESP 17; TEMP 97.9; O2SAT 98
[2023-06-26] MEDS: DIVALPROEX SODIUM 500 MG DR TABLET PO SCH (16:31)
[2023-06-26] MEDS: ARIPiprazole 5 MG TABLET PO SCH (18:07)
[2023-06-26 23:56] VITALS: BP 134/72; PULSE 64; RESP 18; TEMP 98; O2SAT 98
[2023-06-27 08:08] VITALS: BP 122/70; PULSE 76; RESP 18; TEMP 98.7; O2SAT 100
[2023-06-27] MEDS: DIVALPROEX SODIUM 500 MG DR TABLET PO SCH ×2 (08:19→16:48)
[2023-06-27] MEDS: ARIPiprazole 5 MG TABLET PO SCH (08:19)
[2023-06-27] MEDS: ACETAMINOPHEN 325 MG TABLET PO PRN (18:43)
[2023-06-27 18:44] VITALS: RESP 17
[2023-06-27] MEDS: LORazepam 2 MG TABLET PO PRN (18:44)
[2023-06-27 19:44] VITALS: RESP 16
[2023-06-27 20:56] VITALS: BP 122/82; PULSE 66; RESP 18; TEMP 98.8; O2SAT 98
[2023-06-28] MEDS: ZOLPIDEM TARTRATE 10 MG TABLET PO PRN (00:36)
[2023-06-28] MEDS: LORazepam 2 MG TABLET PO PRN ×2 (00:37→14:29)
[2023-06-28 08:01] VITALS: BP 129/90; PULSE 86; RESP 17; TEMP 98.6; O2SAT 97
[2023-06-28] MEDS: ARIPiprazole 5 MG TABLET PO SCH (08:23)
[2023-06-28] MEDS: DIVALPROEX SODIUM 500 MG DR TABLET PO SCH ×2 (08:23→16:25)
[2023-06-28 20:17] VITALS: BP 142/79; PULSE 80; RESP 18; TEMP 98.2; O2SAT 98
[2023-06-29] MEDS: ZOLPIDEM TARTRATE 10 MG TABLET PO PRN ×2 (00:29→20:44)
[2023-06-29] MEDS: LORazepam 2 MG TABLET PO PRN ×2 (00:30→19:32)
[2023-06-29] MEDS: ARIPiprazole 5 MG TABLET PO SCH (08:30)
[2023-06-29] MEDS: DIVALPROEX SODIUM 500 MG DR TABLET PO SCH ×2 (08:30→16:46)
[2023-06-29 09:00] VITALS: BP 135/89; PULSE 100; RESP 18; TEMP 98.5; O2SAT 98
[2023-06-29 14:20] VITALS: RESP 18
[2023-06-29] MEDS: ACETAMINOPHEN 325 MG TABLET PO PRN (14:20)
[2023-06-29 15:08] VITALS: RESP 18
[2023-06-29 20:03] VITALS: BP 142/83; PULSE 87; RESP 18; TEMP 97.5
[2023-06-29] MEDS ORDERED: ARIP5TAB37 PO (21:27)
[2023-06-29] MEDS ORDERED: DIVA-112 PO (21:27)
[2023-06-29] MEDS: HALOPERIDOL 5 MG TABLET PO PRN (22:04)
[2023-06-30] MEDS: HALOPERIDOL 5 MG TABLET PO PRN (02:46)
[2023-06-30] MEDS: LORazepam 2 MG TABLET PO PRN (02:46)
[2023-06-30] MEDS: ARIPiprazole 5 MG TABLET PO SCH (09:11)
[2023-06-30] MEDS: DIVALPROEX SODIUM 500 MG DR TABLET PO SCH (09:11)
== END 2023-06-30 13:42 | disposition home or self-care (01) | DRG 753 ==
LOC: EMS 16:50 → UNDOADMIN 21:42 → B2S 21:42
PROVIDERS: ADMIT Psychiatry & Neurology Psychiatry; ATTEND Psychiatry & Neurology Psychiatry
DX: F31.9 Bipolar disorder, unspecified (principal); R45.851 Suicidal ideations; F20.9 Schizophrenia, unspecified; F41.9 Anxiety disorder, unspecified; G47.00 Insomnia, unspecified; K59.00 Constipation, unspecified; F15.10 Other stimulant abuse, uncomplicated; Z20.822 Contact with and (suspected) exposure to COVID-19; F12.10 Cannabis abuse, uncomplicated; F17.210 Nicotine dependence, cigarettes, uncomplicated; K21.9 Gastro-esophageal reflux disease without esophagitis; I10 Essential (primary) hypertension; Z59.00 Homelessness unspecified
CPT/HCPCS: 80053; 80164; 80307; 85025; G0480

== ENCOUNTER 2023-11-12 20:51 | Inpatient (IN) | payer MEDICAID ==
[~2023-11-12] VITALS: Ht 185.4 cm; Wt 64.5 kg
[2023-11-12] MEDS ORDERED: HALOPERIDOL 5 MG TABLET PO PRN (21:45)
[2023-11-13 09:09] VITALS: RESP 18
[2023-11-13 09:35] VITALS: BP 140/77; PULSE 70; RESP 18; TEMP 97.6; O2SAT 98
[2023-11-13] MEDS: ARIPiprazole 5 MG TABLET PO SCH (13:30)
[2023-11-13] MEDS: DIVALPROEX SODIUM 500 MG DR TABLET PO SCH (13:30)
[2023-11-13] MEDS ORDERED: DOCUSATE SODIUM 100 MG CAPSULE PO PRN (14:45)
[2023-11-13] MEDS ORDERED: MAG HYDROX/ALUMINUM HYD/SIMETH ES 30 ML SUSPENSION UDCUP PO PRN (14:45)
[2023-11-13] MEDS ORDERED: CloNIDine HCL 0.1 MG TABLET PO PRN (14:45)
[2023-11-13] MEDS ORDERED: PETROLATUM,WHITE 28 GM JELLY TP PRN (14:45)
[2023-11-13] MEDS ORDERED: LOPERAMIDE HCL 2 MG CAPSULE PO PRN (14:45)
[2023-11-13] MEDS ORDERED: MAGNESIUM HYDROXIDE SUSPENSION 30 ML UDCUP PO PRN (14:45)
[2023-11-13] MEDS ORDERED: IBUPROFEN 400 MG TABLET PO PRN (14:45)
[2023-11-13] MEDS ORDERED: ALBUTEROL SULFATE HFA 90 MCG/PUFF 8 GM INHALER IH PRN (14:45)
[2023-11-13] MEDS ORDERED: GuaiFENesin/D-METHORPHAN [SUGAR-FREE] 200-20MG/10 ML SYRUP UDCUP PO PRN (14:45)
[2023-11-13] MEDS ORDERED: ONDANSETRON HCL 4 MG TABLET PO PRN (14:45)
[2023-11-13] MEDS ORDERED: ACETAMINOPHEN 325 MG TABLET PO PRN (14:45)
[2023-11-13] MEDS ORDERED: NICOTINE 14 MG/24 HOUR PATCH TD PRN (14:45)
[2023-11-13] MEDS ORDERED: DiphenhydrAMINE HCL 50 MG/ML VIAL ONE (17:02)
[2023-11-13] MEDS: DiphenhydrAMINE HCL 50 MG/ML VIAL IM ONE (17:07)
[2023-11-13 21:05] VITALS: BP 135/77; PULSE 69; RESP 17; TEMP 98.2; O2SAT 97
[2023-11-14 08:30] VITALS: BP 126/68; PULSE 65; RESP 17; TEMP 97.6; O2SAT 98
[2023-11-14] MEDS ORDERED: DiphenhydrAMINE HCL 50 MG/ML VIAL ONE (15:24)
[2023-11-14] MEDS ORDERED: LORazepam 2 MG/ML VIAL ONE (15:25)
[2023-11-14] MEDS: DiphenhydrAMINE HCL 50 MG/ML VIAL IM ONE (15:36)
[2023-11-14] MEDS: LORazepam 2 MG/ML VIAL IM ONE (15:36)
[2023-11-14] MEDS: ChlorproMAZINE HCL 50 MG/2 ML AMP IM ONE (15:37)
[2023-11-14 20:47] VITALS: RESP 18; TEMP 97
[2023-11-15 08:15] VITALS: BP 160/88; PULSE 88; RESP 18; TEMP 97.6; O2SAT 98
[2023-11-15 11:15] LABS: APPEARANCE,URINE CLEAR (CLEAR); BILIRUBIN,URINE NEGATIVE (NEGATIVE); COLOR,URINE YELLOW (YELLOW); GLUCOSE, URINE (UA) NEGATIVE (NEGATIVE); LEUKOCYTE ESTERASE ,URINE NEGATIVE (NEGATIVE); NITRATE,URINE NEGATIVE (NEGATIVE); OCCULT BLOOD,URINE NEGATIVE (NEGATIVE); PROTEIN,URINE TRACE mg/dL (NEGATIVE); SPECIFIC GRAVITIY, URINE 1.034 (1.003-1.030); UROBILINOGEN,URINE <=1.0 mg/dL (<=1.0)
[2023-11-15 11:18] LABS: ALCOHOL, URINE DRUG SCREEN NEGATIVE (NEGATIVE); AMPHET/METH SCREEN,URINE NEGATIVE (NEGATIVE); BARBITURATE SCREEN, URINE NEGATIVE (NEGATIVE); BENZODIAZEPINES SCREEN,URINE NEGATIVE (NEGATIVE); CANNABINOID SCREEN,URINE POSITIVE (NEGATIVE); COCAINE SCREEN,URINE NEGATIVE (NEGATIVE); METHADONE SCREEN, URINE NEGATIVE (NEGATIVE); OPIATE SCREEN,URINE NEGATIVE (NEGATIVE); PHENCYCLIDINE SCREEN,URINE NEGATIVE (NEGATIVE)
[2023-11-15] MEDS: ARIPiprazole 5 MG TABLET PO ONE (13:22)
[2023-11-15] MEDS: BENZTROPINE MESYLATE 0.5 MG TABLET PO SCH (13:22)
[2023-11-15] MEDS: NICOTINE POLACRILEX 2 MG LOZENGE PO PRN (15:03)
[2023-11-15 20:05] VITALS: BP 156/86; PULSE 100; RESP 18; TEMP 98; O2SAT 97
[2023-11-15 21:07] VITALS: BP 153/90; PULSE 107; RESP 17; TEMP 97
[2023-11-15] MEDS: ZOLPIDEM TARTRATE 10 MG TABLET PO PRN (21:56)
[2023-11-16] MEDS: LORazepam 2 MG TABLET PO PRN (00:37)
[2023-11-16 08:40] LABS: HEMOGLOBIN A1C 5.6 % (3.8-5.6)
[2023-11-16 08:51] LABS: ALANINE AMINOTRANSFERASE 31 U/L (12-78); ALBUMIN 3.6 g/dL (3.4-5.0); ALKALINE PHOSPHATASE 80 U/L (46-116); ANION GAP 8 mmol/L (8-16); ASPARTATE AMINOTRANSFERASE 37 U/L (15-37); BILIRUBIN,TOTAL 0.3 mg/dL (0.1-1.0); CALCIUM, TOTAL 8.9 mg/dL (8.8-10.5); CARBON DIOXIDE 27 mmol/L (22-29); CHLORIDE 99 mmol/L (98-107); CHOL/HDL RATIO 2.7 (4.2-7.3); CHOLESTEROL 142 mg/dL (131-200); CREATININE 0.64 mg/dL (0.60-1.30); FREE T4 (FREE THYROXINE) 0.87 ng/dL (0.76-1.46); GLOMERULAR FILTR. RATE CALC > 60 mL/min (>60); GLUCOSE,RANDOM 104 mg/dL (70-110); HDL CHOLESTEROL 53 mg/dL (40-60); LDL CHOL (CALC.) 72 mg/dL (0-130); POTASSIUM 4.1 mmol/L (3.5-5.1); SODIUM SERUM 134 mmol/L (136-145); TOTAL PROTEIN, SERUM 8.2 g/dL (6.4-8.2); TRIGLYCERIDES 87 mg/dL (15-150); UREA NITROGEN, BLOOD 8 mg/dL (7-18)
[2023-11-16 10:59] VITALS: BP 146/93; PULSE 95; RESP 18; TEMP 97.2; O2SAT 97
[2023-11-16 20:01] VITALS: BP 131/83; PULSE 101; RESP 19; TEMP 98.7; O2SAT 96
[2023-11-16] MEDS: INFLUENZA VIRUS VACCINE QVS 2023-24 (6MO+)/PF 60 MCG/0.5 ML SYRINGE IM. ONE (22:15)
[2023-11-16] MEDS: PNEUMOCOCCAL VACCINE POLYVALENT 0.5 ML SYRINGE [PPSV23] IM. ONE (22:16)
[2023-11-17 08:17] VITALS: BP 130/74; PULSE 97; RESP 18; TEMP 97.1; O2SAT 98
[2023-11-17 20:15] VITALS: BP 124/73; PULSE 94; RESP 19; TEMP 97.2; O2SAT 100
[2023-11-18 10:14] VITALS: BP 118/75; PULSE 91; RESP 17; TEMP 97.9; O2SAT 99
[2023-11-18] MEDS ORDERED: DIVA-112 PO (10:40)
[2023-11-18] MEDS ORDERED: ARIP5TAB37 PO (10:40)
[2023-11-18] MEDS ORDERED: BENZ0.5T6 PO (10:40)
== END 2023-11-18 14:00 | disposition home or self-care (01) | DRG 750 ==
LOC: B2S 21:56
PROVIDERS: ADMIT Psychiatry & Neurology Psychiatry; ATTEND Psychiatry & Neurology Psychiatry
PROC: GZHZZZZ Group Psychotherapy (ICD-10-PCS; principal; 2023-11-13)
PROC: GZ51ZZZ Individual Psychotherapy, Behavioral (ICD-10-PCS; 2023-11-13)
DX: F25.1 Schizoaffective disorder, depressive type (principal); G92.9 Unspecified toxic encephalopathy; Z91.148 Patient's other noncompliance with medication regimen for other reason; I10 Essential (primary) hypertension; R45.851 Suicidal ideations; R73.9 Hyperglycemia, unspecified; F12.90 Cannabis use, unspecified, uncomplicated; F15.90 Other stimulant use, unspecified, uncomplicated; F19.90 Other psychoactive substance use, unspecified, uncomplicated; D64.9 Anemia, unspecified; Z59.00 Homelessness unspecified; Z79.899 Other long term (current) drug therapy
CPT/HCPCS: 80053; 80061; 80307; 81003; 83036; 84439; 84443; J1200; J2060; J3230; Q9967